=== PATIENT | female | born 2000 | race Caucasian/White ===

== ENCOUNTER 2024-12-22 11:17 | Emergency (ER) | payer BC, SELFPAY ==
--- NOTE | ~2024-12-22 | CT_ITS ---
EXAMINATION: CT HEAD WITHOUT CONTRAST CLINICAL INFORMATION: Headache, syncope COMPARISON: None available. TECHNIQUE: Contiguous axial imaging was performed from the skull base to vertex without intravenous administration of contrast. This CT examination was performed using dose optimization techniques as appropriate, variously including the following: *Automated exposure control *Adjustment of mA and/or kV according to patient size (this includes techniques or standardized protocols for targeted exams where dose is matched to indication/reason for exam; i.e. extremities or head) *Use of iterative reconstruction technique DLP: 584 mGY*cm FINDINGS: There is no acute ischemic change. There is no intracranial hemorrhage. There is no mass-effect or midline shift. Basal cisterns and ventricles are within normal limits for age/cerebral volume. Orbits are symmetrical and unremarkable. Paranasal sinuses and mastoid air cells are pneumatized. There are no bony abnormalities. CT/CT head/brain wo IV con IMPRESSION: No acute intracranial abnormality. Electronically signed by: Jonathan Kc MD 12/22/2024 01:51 PM EDT
[2024-12-22 12:02] VITALS: BP 133/74; PULSE 80; RESP 16; TEMP 36.4; O2SAT 100; BMI 19.5
--- NOTE | 2024-12-22 12:07 | ECG_ITS ---
Test Reason : SYNCOPE Blood Pressure : */* mmHG Vent. Rate : 76 BPM Atrial Rate : 76 BPM P-R Int : 112 ms QRS Dur : 76 ms QT Int : 348 ms P-R-T Axes : 66 44 51 degrees QTcB Int : 391 ms Normal sinus rhythm Normal ECG No previous ECGs available Referred By: Wale Rico Electronically Signed By: GULSHAN HORNER
--- NOTE | 2024-12-22 12:13 | ED_ITS ---
[facility] - General Adult General Chief complaint: Headache Stated complaint: 7 day migraine Time Seen by Provider: 12/22/24 13:34 Source: patient Mode of arrival: ambulatory Limitations: no limitations History of Present Illness ED Provider: [facility] narrative: 24-year-old woman with a history of POTS, vestibular migraine, has had migraine headache for the past 7 days with some features that are fairly typical for her such as right facial and right upper extremity numbness, she called her neurologist in [facility] from where she moved and now living here and was told to come to the ER. No fevers or chills slight nausea slight photophobia, she has been taking her breakthrough medication at home with some relief she is still about 7/10. She also states she had 3 syncope episodes, she usually passes out 2 to 3 times a month, has midodrine that she uses on as needed basis. No chest pain no atypical features with that. Related Data Allergies Allergy/AdvReac Type Severity Reaction Status Date / Time No Known Allergies Allergy Verified 12/22/24 12:06 Review of Systems 2 Constitutional: Constitutional: Reports as per [facility] Social History Social History Advance Directives: No Advance Directives Information Provided: Yes Physical Exam ED Vital Signs: Vital Signs - 24 hr 12/22/24 12:02 12/22/24 17:28 Temperature 97.5 F 98.0 F Pulse Rate 80 88 Respiratory Rate 16 16 Blood Pressure 133/74 91/57 L Pulse Oximetry 100 99 Oxygen Delivery Method Room Air Room Air BMI result Body Mass Index 19.5 Const Other: * Gen: ?Overall well-appearing patient * HEENT: PERRLA, EOMI, MMM, * Neck: Supple, no LAD * CV: RRR, no obvious murmurs appreciated * Resp: ?No wheezing rales rhonchi no stridor moving air well * Abd: ?Bowel sounds are present, no tenderness no rebound no rigidity * MSK: FROM, strength 5/5 all extremities * Skin: Warm, dry, intact, * Neuro: ?Alert and oriented x3, moving upper and lower extremities symmetrically, no obvious facial asymmetry noted, no dysmetria upper or lower extremities, no nystagmus Course Course Course Narrative: RME: 24-year-old female presents to ED for migraine for 1 week. Patient states last night headache was so bad she syncopized. Patient also has POTS syndrome. No relief with migraine meds. Imaging labs ordered Reevaluation(s) Reevaluation #1: I re-evaluated this patient at bedside, she states that after the 2nd dose she is feeling much improved. She has reached out to her neurologist and states that there were no additional recommendations. I did recommend that she could initiate glpe-odw-btvrver magnesium daily as an attempt in prevention of 400 mg. I also informed her that she can take Tylenol and ibuprofen together in addition to her prescribed medications. She otherwise appears well/nontoxic and is hemodynamically stable without focal neurologic deficits. Time: 17:06 Medications Administered Discontinued Medications Generic Name Dose Route Start Last Admin Trade Name Freq PRN Reason Stop Dose Admin Diazepam 2.5 mg 12/22/24 14:21 12/22/24 14:40 Diazepam 10 Mg/2 Ml Cartridge IVPUSH 12/22/24 14:22 2.5 mg STAT STA Administration Diazepam 4 mg 12/22/24 15:49 12/22/24 16:11 Diazepam 10 Mg/2 Ml Cartridge IVPUSH 12/22/24 15:50 4 mg STAT STA Administration Diphenhydramine HCl 12.5 mg 12/22/24 14:21 12/22/24 14:39 Diphenhydramine Hcl 50 Mg/Ml Vial IVPUSH 12/22/24 14:22 12.5 mg ONCE ONE Administration Sodium Chloride 1,000 mls @ 999 mls/hr 12/22/24 14:30 12/22/24 16:28 Ns IV 12/22/24 15:30 Infused .Q1H1M KAYLENE Infusion Acetaminophen 1,000 mg in 100 mls @ 400 mls/hr 12/22/24 15:49 12/22/24 17:20 Ofirmev IV 12/22/24 16:03 Infused ONCE ONE Infusion Ketorolac Tromethamine 15 mg 12/22/24 14:21 12/22/24 14:39 Ketorolac Tromethamine 15 Mg/Ml Vial IVPUSH 12/22/24 14:22 15 mg ONCE ONE Administration Methylprednisolone Sodium Succinate 125 mg 12/22/24 14:21 12/22/24 14:40 Methylprednisolone Sod Succ 125 Mg/2 Ml Vial IVPUSH 12/22/24 14:22 125 mg ONCE ONE Administration Ondansetron HCl 4 mg 12/22/24 14:21 12/22/24 14:38 Ondansetron Hcl 4 Mg/2 Ml Vial IVPUSH 12/22/24 14:22 4 mg ONCE ONE Administration Medical Decision Making Differential Diagnosis Differential Diagnoses: The differential diagnosis associated with the presentation includes (Migraine, cervicalgia, meningitis, encephalitis, brain mass, cavernous venous thrombosis, ACS, dysrhythmia, WPW) Admission/Observation Consideration of admission/observation: Escalation of care including admission/observation considered Lab Data MDM Lab Attestation statement: I reviewed the patient's lab results. 12/22/24 12:47 12/22/24 12:47 Labs: Lab Results 12/22/24 Range/Units 12:47 WBC 6.1 (4.8-10.8) X10*3/uL RBC 4.43 (4.20-5.50) X10*6/uL Hgb 13.2 (12.0-16.0) g/dl Hct 38.3 (37.0-47.0) % MCV 86.5 (80.0-98.0) fL MCH 29.8 (27.0-33.0) pg MCHC 34.5 (31.0-35.0) g/dl RDW 12.7 (11.0-16.0) % Plt Count 307 (160-400) X10*3/uL MPV 9.7 (9.4-12.3) fL Immature Gran % (Auto) 0.3 (0.0-0.4) % Neut % (Auto) 76.2 H (45-73) % Lymph % (Auto) 16.5 L (20-40) % [place] % (Auto) 5.8 (2-11) % Eos % (Auto) 0.7 (0-4) % Baso % (Auto) 0.5 (0-2) % Lymph # (Auto) 1.0 L (1.2-4.9) X10*3/uL [place] # (Auto) 0.4 (0.1-1.2) X10*3/uL Eos # (Auto) 0.0 (0.0-0.4) X10*3/uL Baso # (Auto) 0.0 (0.0-0.2) X10*3/uL Abs Immat Gran (auto) 0.02 (0.00-0.03) X10*3/uL Absolute Neuts (auto) 4.6 (2.0-8.3) x10*3/uL Absolute Nucleated RBC 0.000 (0.0-0.012) X10*3/uL Nucleated RBC % (auto) 0.0 (0.0-0.2) /100WBC PT 10.9 (10.9-12.4) SEC INR 1.0 (0.9-1.1) APTT 31.9 (26.7-34.1) SEC Sodium 143 (135-145) mmol/L Potassium 4.0 (3.3-5.1) mmol/L Chloride 108 (96-108) mmol/L Carbon Dioxide 27 (22-29) mmol/L Anion Gap 12 (12-20) BUN 18 H (9-16) mg/dL Creatinine 0.63 (0.5-1.4) mg/dL Estim Creat Clear Calc 106.5 Estimated GFR > 60 Random Glucose 72 (60-115) mg/dL Calcium 9.2 (8.4-10.2) mg/dL Total Bilirubin 0.8 (0.0-1.0) mg/dL AST 23 (5-31) U/L ALT 15 (0-31) U/L Alkaline Phosphatase 58 (39-117) U/L Troponin I High Sens < 2.7 (<3.5-17.0) ng/L Total Protein 7.2 (6.5-8.0) g/dL Albumin 4.8 (3.5-5.0) g/dL Beta HCG, Quant < 2 mIU/mL Independent Interpretation I performed an independent interpretation of an: EKG (76 beats per minute, otherwise normal ECG without dysrhythmia, AV jameson blocks or ST-T changes to suspect underlying ACS, my independent interpretation) Radiology Impression Discussion of test interpretation with radiology: I have reviewed the radiologist's reading. (Unremarkable ) Prescription Management I considered prescription management with: Pain Medication Critical Care Time Critical Care Time Critical Care Time: Yes Total Critical Care Time: 35 Attestation: Time is exclusive of separately billable procedures. Time includes: direct patient care, patient reassessment, coordination of patient care, interpretation of data (laboratory data, pulse oximetry, arterial blood gases and chest xrays), review of patient's medical records, medical consultation and documentation of patient care. Procedures excluded from critical care time: central intravenous line placement and electrocardiography. Discharge Plan Discharge Clinical Impression: Migraine, POTS (postural orthostatic tachycardia syndrome) Patient Disposition: Home, Self-Care Instructions: Migraine Headache (ED) Additional Instructions: Preventative medications and breakthrough medication should be discussed with a neurologist, your blood work, CT brain, EKG has been reassuring You received medications and IV fluids for migraines Overall I am reassured by your workup, your physical examination and your vital signs in the emergency department Any other issues or concerns come back to the ER May consider benm-znx-utoeswa magnesium 400 mg for prevention. Do not forget that you can take 1000 mg of Tylenol with 400 mg of ibuprofen together every 6 hours as needed. Stand Alone Forms: Work/School Release Interventions: ED Discharge Assessment Last Done: 12/22/24 17:28 Discharge Date/Time: 12/22/24 17:30 Print Language: Citizen Of [place]
[2024-12-22 12:50] LABS: MANUAL DIFF FLAG NO
[2024-12-22 12:51] LABS: Hematocrit 38.3 % (37.0-47.0); Hemoglobin 13.2 g/dl (12.0-16.0); Imm Gran Abs Auto 0.02 X10*3/uL (0.00-0.03); Imm Gran Pct Auto 0.3 % (0.0-0.4); Lymphocytes Absolute Auto 1.0 X10*3/uL (1.2-4.9); Mean Corpuscular HGB Conc 34.5 g/dl (31.0-35.0); Mean Corpuscular Hemoglobin 29.8 pg (27.0-33.0); Mean Corpuscular Volume 86.5 fL (80.0-98.0); NRBC Abs Auto 0.000 X10*3/uL (0.0-0.012); NRBC Pct Auto 0.0 /100WBC (0.0-0.2); Platelet Count 307 X10*3/uL (160-400); Red Blood Count 4.43 X10*6/uL (4.20-5.50); White Blood Count 6.1 X10*3/uL (4.8-10.8)
[2024-12-22 12:58] LABS: INTERNATIONAL NORM RATIO 1.0 (0.9-1.1); Prothrombin Time 10.9 SEC (10.9-12.4)
[2024-12-22 13:01] LABS: Partial Thromboplastin Time 31.9 SEC (26.7-34.1)
[2024-12-22 13:10] LABS: Alanine Aminotransferase 15 U/L (0-31); Albumin Level 4.8 g/dL (3.5-5.0); Alkaline Phosphatase 58 U/L (39-117); Anion Gap 12 (12-20); Aspartate Amino Transferase 23 U/L (5-31); Blood Urea Nitrogen 18 mg/dL (9-16); Calcium 9.2 mg/dL (8.4-10.2); Carbon Dioxide 27 mmol/L (22-29); Chloride 108 mmol/L (96-108); Creatinine Clr Calc Pharmacy 106.5; Estimated Glomerular Filt Rate > 60; Potassium 4.0 mmol/L (3.3-5.1); Sodium 143 mmol/L (135-145); Total Protein 7.2 g/dL (6.5-8.0)
[2024-12-22 13:23] LABS: Troponin-I High Sensitivity < 2.7 ng/L (<3.5-17.0)
[2024-12-22] MEDS: diazePAM 10 MG/2 ML CARTRIDGE 2.5 MG IVPUSH (14:40)
[2024-12-22] MEDS: diazePAM 10 MG/2 ML CARTRIDGE 4 MG IVPUSH (16:11)
[2024-12-22 17:28] VITALS: BP 91/57; PULSE 88; RESP 16; TEMP 36.7; O2SAT 99
--- OUTSIDE RECORDS SUMMARY | 2024-12-22 17:44 | XMS_ITS | Encounter Summary ---
Author Organization [facility] Address [address] [place] [address] [address] [place] [address] Phone Care Team Providers Care Patient Insurance Clerk Name Role Phone Kamini Rodriguez RN Primary Care Provider [phone] Encounter Details Date Type Department Care Team (Late st Contact Info) Description 06/24/2023 Procedure Pass [facility] [address] [place] [address] Social History Tobacco Use Types Packs/Day Years Used Date Smoking Tobacco: Never Assessed Education Answer Date Recorded Are you interested in more education? Not on aly e 08/02/2022 Are you concerned about learning? Not on file 08/02/2022 No 08/02/2022 No 08/02/2022 Digital Access Answer Date Recorded No 09/02/2022 No 09/02/2022 Reliable internet access at home? Not on file 09/02/2022 Device with a working camera? Not on file Comments Unknown Sex and Gender Information Value Date Recorded Sex Assigned at Female 09/25/2023 1:10 PM EDT Legal Sex Female 2:55 PM EST Gender Identity Female 09/25/2023 1:10 PM EDT Sexual Orientation Straight 09/25/2023 1: 10 PM EDT documented as of this encounter Plan of Treatment Upcoming Encounters Date Type Department Care Team (Late st Contact Info) Description 01/21/2025 1:30 PM EDT Office Visit [facility] Cardiology [address], [address] [place] [address] Kamilla Mancia MD [address] [place] [phone] [email or web address] 06/13/2025 8:00 AM EDT Telemedicine [facility] [address] [place] [address] [address] [place] [address] Gonzalo Bedolla MD [address] [place] [address] [address] [place] [address] [email or web address] documented as of this encounter Visit Diagnoses Not on filedocumented in this encounter Care Teams Patient Insurance Clerk Relationship Specialty Start Date End Date Kamini Rodriguez RN [email or web address] PCP - General 01/22/22 Kamini Rodriguez NP [address] [place] [address] Primary Care Physician 02/05/21 documented as of this encounter Additional Source Comments The information contained in this document represents components of the legal health record. It is not the complete legal health record.[facility]
--- OUTSIDE RECORDS SUMMARY | 2024-12-22 17:44 | XMS_ITS | Clinical Summary ---
Author Organization [facility] Address [address] [place] [id number] Phone Care Team Providers Care Fuel Tank Sealer And Tester Name Role Phone Kamini Rodriguez RN Primary Care Provider [phone] Allergies No known active allergies Medications norethindrone-ethi nyl estradiol-iron (ESTROSTEP FE) 1-20(5)/1-30(7) /1mg-35mcg (9) Tab Take 1 tablet by mouth daily. Active bacillus coagulans-inulin 1 billion-250 cell-mg Cap Take 250 mg by mouth daily. Active calcium carbonate 1,250 mg (500 mg elemental) capsule Take 1,250 mg by mouth daily. Active ondansetron (ZOFRAN) 4 MG tablet Take 4 mg by mouth every 8 (eight) hours as needed for nausea. Uses infrequently Active cholecalciferol (VITAMIN D3) 400 unit tablet Take 400 Units by mouth daily. Active pyRIDostigmine (MESTINON) 60 mg tablet Take 1 tablet (60 mg total) by mouth 2 (two) times a day. 60 tablet 11 01/08/20 24 Active sodium chloride 1,000 mg tablet Take 1 tablet (1,000 mg total) by mouth 3 (three) times a day. 270 tablet 3 01/08/20 24 Active midodrine (PROAMATINE) 10 MG tablet Take 1 tablet (10 mg total) by mouth every morning. As needed 30 tablet 11 01/08/20 24 Active multivitamin stress B with zinc (SURBEX 750 WITH ZINC TABLET) Tab Take 1 tablet by mouth daily. Active etonogestreL (NEXPLANON) 68 mg Impl Inject 68 mg into the skin Once every 3 years. Active rizatriptan (MAXALT-SMOKE JUMPER SUPERVISOR) 10 MG disintegrating tablet Take 1 tablet (10 mg total) by mouth as needed for migraine. May repeat in 2 hours if needed 9 tablet 5 06/12/19 25 Active amitriptyline (ELAVIL) 25 MG tablet Take 1 tablet (25 mg total) by mouth nightly at bedtime. TAKE ONE TABLET BY MOUTH AT BEDTIME 90 tablet 3 06/12/19 25 Active Active Problems Problem Noted Date Diagnosed Date BPPV (benign paroxysmal posi tional vertigo), unspecified laterality 01/24/2020 POTS (postural orthostatic tachycardia syndrome) Assessment & Plan (01/17/2024 4:13 PM EDT): Mestinon - Mestinon (Pyridostigmine) is a cholinesterase inhibiter that decreases the degradation of acetylcholine which is the scott neurotransmitter in both fight or flight (sympathetic) and rest and digest (parasympathetic) autonomic systems. The Baroreflex that regulates blood pressure and heart rate on standing is part of the sympathetic nervous system. Mestinon is best for patients with mild to moderate orthostatic hypotension. It will also run heart rate lower and increase bowel motility. Side effect - rare face twitch minor queasy that goes away. Slow load Week 1 Mestinon 60 mg 1/2 AM Week 2 Mestinon 1/2 tablet AM and 5 PM Week 3 Mestinon whole tablet AM then 1/2 tablet at 5 PM Week 4 and beyond whole tablet AM and 5 PM Will take effect in 1 month full effect in 3 months You can increase steps per day at the one month yin! Use a Negoramabit or Apple watch to count steps Message me via [place] with progress at the 4 month yin. Assessment & Plan (11/27/2022 12:33 PM EDT): Had to call in salt tablet 1 g tid Refilled midodrine 5 mg am as needed Assessment & Plan (12/08/2021 1:32 PM EDT): Moving Florinef 0.1 mg to 0.2 mg Labs after 1 -2 weeks Assessment & Plan (08/03/2021 10:41 PM EDT): May do well with florinef in addition to midodrine. 2-3 liters Fluid - Chug 1st glass of the day Salt Compression Socks Lower extremity exercise - recumbant bike Book: Together we Stand: Riding the Waves of Dysautonomia. By Magali Cochran Echo in [place] AFT tilt table in [place] Assessment & Plan (05/24/2021 1:40 PM EST): At a prior visit, felt she met diagnostic criteria for POTS based on HR rise by more than 30 bpm, and over 120 within 10 minutes of standing. She does not appear to have any associated disorders such as Ehler Danlos. Overall she was doing much better, able to work, though recently some worsening post URTI. Her HR and BP with supine/standing were not impressive today but she is still symptomatic and affecting QOL. Will increase midodrine to 10 mg BID, she will message me in a few days, with eventual plan to taper back to prior dose of 5 mg BID. She will continue to hydrate well, increase salt. Her leg pain could be from tight leg sleeves, she will stop using and see if this improves. Assessment & Plan (02/09/2021 1:10 PM EDT): At prior visit, felt she met diagnostic criteria for POTS based on HR rise by more than 30 bpm, and over 120 within 10 minutes of standing. She does not appear to have any associated disorders such as Ehler Danlos. Overall she is doing much better, enjoying her new job and looking forward to a trip to [facility] over the holidays. To adjust meds to perhaps offer even better control - will change midodrine to 5 mg BID, continue salt, compression stockings and hydration. Will plan in person visit when next seen. Assessment & Plan (10/23/2020 9:58 AM EDT): At prior visit, felt she met diagnostic criteria for POTS based on HR rise by more than 30 bpm, and over 120 within 10 minutes of standing. She does not appear to have any associated disorders such as Ehler Danlos. Sheila is doing better after physiotherapy, salt tablets, consistent use of compression stockings and now midodrine. She is looking forward to starting her new job next week and feels ready to do so. She starts feeling better, 30 minutes after midodrine for at least 4 hours after. Can take another midodrine 2.5 mg in the afternoon as needed for symptoms. BMP and LFT's today. She will continue other measures including salt tablets, compression stockings and exercise therapy. Assessment & Plan (10/11/2020 11:34 AM EDT): Sheila is doing better after physiotherapy, salt tablets, consistent use of compression stockings. However not back to baseline and still affecting QOL. At prior visit, felt she met diagnostic criteria for POTS based on HR rise by more than 30 bpm, and over 120 within 10 minutes of standing. She does not appear to have any associated disorders such as Ehler Danlos. She is hoping to start employment in early November - thus goal is to ensure she feels well enough to do so. Today will start midodrine 2.5 mg daily - with goal to increase to BID/TID as able. She will message me in a week with how she is feeling and otherwise followup in 2 weeks. She will continue other measures including salt tablets, compression stockings and exercise therapy. Assessment & Plan (07/07/2020 11:21 AM EDT): Sheila is doing better after physiotherapy, salt tablets, consistent use of compression stockings. At last visit, felt she met diagnostic criteria for POTS based on HR rise by more than 30 bpm, and over 120 within 10 minutes of standing. She does not appear to have any associated disorders such as Ehler Danlos. We had planned a short term followup to ensure improvement and if not consider Florinef - which I do not feel we need to start at this time. Will continue hydration, salt tablets and can increase to 3 mg daily over summer if more symptomatic. Asker her to check BP once/twice/month. g BID. Her syncope appears to have a vagal component and we will be treated similarly as above, with no recurrences. Assessment & Plan (05/17/2020 9:38 PM EST): Sheila appears meet diagnostic criteria for POTS based on HR rise by more than 30 bpm, and over 120 within 10 minutes of standing. She does not appear to have any associated disorders such as Ehler Danlos. We reviewed the overall good prognosis and this will likely improve over time. She is really benefiting from physiotherapy. Will continue to wear compression stockings and also encouraged high salt foods - soups, pretzels etc. We also started salt tablets for a dose of 1 g BID. We will connect soon and if still affecting QOL plan to start florinef. Her syncope appears to have a vagal component and we will be treated similarly as above. Abnormal electrocardiogram Assessment & Plan (05/24/2021 1:36 PM EST): Short IA which could set her up for SVT, no delta wave, primary arhythmia does not appear consistent with her history, no SVT on monitoring in the past Assessment & Plan (02/09/2021 1:08 PM EDT): Short IA which could set her up for SVT, no delta wave, primary arhythmia does not appear consistent with her history, no SVT on monitoring in the past Assessment & Plan (10/23/2020 9:16 AM EDT): Short IA which could set her up for SVT, no delta wave, primary arhythmia does not appear consistent with her history ,no SVT on monitoring in the past Assessment & Plan (10/11/2020 11:05 AM EDT): Short IA which could set her up for SVT, no delta wave, primary arhythmia does not appear consistent with her history ,no SVT on monitoring in the past Assessment & Plan (07/07/2020 11:01 AM EDT): Short IA which could set her up for SVT, no delta wave, primary arhythmia does not appear consistent with her history ,no SVT on monitoring in the past Assessment & Plan (05/16/2020 11:18 PM EST): Short IA which could set her up for SVT, no delta wave, primary arhythmia does not appear consistent with her history ,no SVT on monitoring in the past Social History Tobacco Use Types Packs/Day Years Used Date Smoking Tobacco: Never Assessed Tobacco Cessation:Counseling Given: Not Answered Education Answer Date Recorded Are you interested [...] Orientation Straight 09/25/2023 1: 10 PM EDT Last Filed Vital Signs Vital Sign Reading Time Taken Comments Blood Pressure 121/76 06/11/2024 8:47 AM EST Pulse 82 06/11/2024 8:47 AM EST Temperature 36.5 C (97.7 F) 01/28/2023 2:04 PM EDT Respiratory Rate - - Oxygen Saturation 98% 01/28/2023 2:04 PM EDT Inhaled Oxygen Concentration - - Weight 43.5 kg (96 lb) 06/11/2024 8:47 AM EST Height 152.4 cm (5') 06/11/2024 8:47 AM EST Body Mass Index 18.75 06/11/2024 8:47 AM EST Plan of Treatment Upcoming Encounters Date Type Department Care Team (Late st Contact Info) Description 01/21/2025 1:30 PM EDT Office Visit [facility] Cardiology [facility] [address] [facility], [address] [place] [address] Kamilla Mancia MD [address] [place] [phone] [email or web address] 06/13/2025 8:00 AM EDT Telemedicine [facility] [address] [address] Gonzalo Bedolla MD [address] [phone] [email or web address] Health Maintenance Due Date Last Done Comments DEPRESSION SCREENING 2010 SMOKING Hx and SMOKELESS TOBACCO SCREENING 2011 HPV VACCINES (1 - 3-dose series) 2013 HIV ONE-TIME SCREENING (18-65 YEARS) 02/11/2016 PAP SMEAR 2019 INFLUENZA VACCINE (#1) 2024 , 03/02/2022, 12/27/2020, Additional history exists COVID-19 VACCINE ( season) 2024 02/01/2023, 02/02/2022, 02/02/2021, Additional history exists Adult Td,Tdap Booster 01/04/2032 01/03/2022, 011 MENINGOCOCCAL VACCINES (ACWY) Completed 01/04/2016, 11/22/2010 HEPATITIS A VACCINES Aged Out 04/12/2019, 05/22/19 19 No longer eligible based on patient's age to complete this topic HEPATITIS C SCREENING Completed 01/03/2022 HIB VACCINES Aged Out No longer eligi ble based on patient's age to complete this topic MENINGOCOCCAL VACCINES (B) Aged Out N o longer eligible based on patient's age to complete this topic PNEUMOCOCCAL VACCINES (0-49 years) Aged Out No longer eligible based on patient's age to complete this topic Medical Devices Not on file Insurance OUT OF STATE PPO BLUE CROSS OUT OF STATE PPO BLUE CROSS OUT OF [facility] PPO BLUE CROSS OUT OF STATE PPO OUT OF STATE PPO OUT OF CRITICAL [facility]ESS [facility]OSPITAL PPO SELECTIVE Care Teams Fuel Tank Sealer And Tester Relationship Specialty Start Date End Date Kamini Rodriguez RN [email or web address] PCP - General 01/22/22 Kamini Rodriguez NP [address] [place] [id number] Primary Care Physician 02/05/21 Additional Source Comments The information contained in this document represents components of the legal health record. It is not the complete legal health record.[facility]
--- OUTSIDE RECORDS SUMMARY | 2024-12-22 17:44 | XMS_ITS | Clinical Summary ---
Author Organization [facility] Address [address] [place] [address] Phone Care Team Providers Care Cane Splicer Name Role Phone Gia Ansari MD Primary Care Provider [phone] Gia Ansari MD Unavailable [phone] Gia Ansari MD Unavailable [phone] Leander Penn MD Unavailable Medications ondansetron ODT (Zofran-ODT) 4 mg disintegrating tablet Dose: 4 mg, Dose Amount: 1 tab, PO, daily, PRN Nausea/Vomit ing, Dispense Quantity: 8 tab, Refills: 3, Entered: 03/27/20 12:11:00 EST, BIG Y 101 0 Active Social History Tobacco Use Types Packs/Day Years Used Date Smoking Tobacco: Never Assessed Comments Unknown Sex and Gender Information Value Date Recorded Sex Assigned at Not on file Legal Sex Female 10:15 PM EDT Gender Identity Not on file Sexual Orientation Not on file Last Filed Vital Signs Vital Sign Reading Time Taken Comments Blood Pressure 108/64 04/26/2020 8:23 AM EST Pulse 71 04/26/2020 8:23 AM EST Temperature 37.3 C (99.1 F) 05/29/2020 8:02 AM EST Respiratory Rate - - Oxygen Saturation 98% 04/12/2020 2:46 PM EST Inhaled Oxygen Concentration - - Weight 41.3 kg (91 lb 0.8 oz) 05/29/2020 8:02 AM EST Height 153.4 cm (5' 0.39 ) 05/29/2020 8:02 AM ES T Body Mass Index 17.55 05/29/2020 8:02 AM EST Plan of Treatment Not on file Care Teams Cane Splicer Relationship Specialty Start Date End Date Gia Ansari MD PCP - General 12/28/12 Gia Ansari MD PCP - Clinical PCP 12/28/12 Gia Ansari MD PCP - Insurance PCP 12/28/12 Leander Penn MD [address] [place] [address] Mattress Filler 09/06/23
--- OUTSIDE RECORDS SUMMARY | 2024-12-22 17:44 | XMS_ITS | Encounter Summary ---
Author Organization [facility] Address [address] [place] [address] [address] [place] [address] Phone Care Team Providers Care Retail Salesperson Name Role Phone Unknown, Unknown Primary Care Provider Kamini Jones RN Primary Care Provider [phone] Encounter Details Date Type Department Care Team (Late Contact Info) Description 07/19/2021 Procedure Pass [facility] Cardiology [address] [place] [address], [address] [place] [phone] Social History Tobacco Use Types Packs/Day Years [...] Encounters Date Type Department Care Team (Late Contact Info) Description 01/21/2025 1:30 PM EDT Office Visit [facility] Cardiology [facility] [address] [facility], [address] [phone] Kamilla Mancia MD [address] [place] [address] [email or web address] 06/13/2025 8:00 AM EDT Telemedicine [facility] [address] [facility] [address] [place] [address] Gonzalo Bedolla MD [address] [facility] [address] [place] [address] [email or web address] documented as of this encounter Visit Diagnoses Not on filedocumented in this encounter Care Teams Retail Salesperson Relationship Specialty Start Date End Date Unknown, Unknown, MD PCP - General 02/20/21 01/21/22 Kamini Rodriguez RN [email or web address] PCP - General 01/22/22 Kamini Rodriguez NP [address] [place] [phone] Primary Care Physician 02/05/21 documented as of this encounter Additional Source Comments The information contained in this document represents components of the legal health record. It is not the complete legal health record.[facility]
--- OUTSIDE RECORDS SUMMARY | 2024-12-22 17:44 | XMS_ITS | Encounter Summary ---
Author Organization [facility] Address [address] [place] [address] [address] [place] [address] Phone Care Team Providers Care Petrology Teacher Name Role Phone Kamini Rodriguez RN Primary Care Provider [phone] Encounter Details Date Type Department Care Team (Late st Contact Info) Description 06/24/2023 Procedure Pass [facility] [address] [place] [address] Social History Tobacco Use Types Packs/Day Years [...] Description 01/21/2025 1:30 PM EDT Office Visit [facility] Cardiology [address], [address] [place] [address] Kamilla Mancia MD [address] [place] [address] [email or web address] 06/13/2025 8:00 AM EDT Telemedicine [facility] [address] [place] [address] [address] [place] [address] Gonzalo Bedolla MD [address] [place] [address] [address] [place] [address] [email or web address] documented as of this encounter Visit Diagnoses Not on filedocumented in this encounter Care Teams Petrology Teacher Relationship Specialty Start Date End Date Kamini Rodriguez RN [email or web address] PCP - General 01/22/22 Kamini Rodriguez NP [address] [place] [address] Primary Care Physician 02/05/21 documented as of this encounter Additional Source Comments The information contained in this document represents components of the legal health record. It is not the complete legal health record.[facility]
--- OUTSIDE RECORDS SUMMARY | 2024-12-22 17:44 | XMS_ITS ---
[facility] Name [facility] Organization Unknown Care Team Organization Name Specialty Phone Email Start Date End [facility] 06/14/2024
== END 2024-12-22 17:30 | disposition home or self-care (01) ==
PROVIDERS: Physician Assistant; Emergency Provider Emergency Medicine
DX: G43.909 Migraine, unspecified, not intractable, without status migrainosus (principal); G90.A Postural orthostatic tachycardia syndrome [POTS]; R55 Syncope and collapse; R10.11 Right upper quadrant pain; R11.2 Nausea with vomiting, unspecified; R10.2 Pelvic and perineal pain; Z79.899 Other long term (current) drug therapy
CPT/HCPCS: 36415; 70450; 80053; 84484; 84702; 85025; 85610; 85730; 93005; 96361; 96365; 96375; 96376; 99284; J0131; J1200; J1885; J2405; J2919; J3360

== ENCOUNTER → 2024-12-22 12:07 | Outpatient (BNV) | payer BC, SELFPAY | PROVIDERS: Emergency Provider Emergency Medicine; Visit Provider Internal Medicine | DX: R55 Syncope and collapse (principal) | CPT/HCPCS: 93010 ==

== ENCOUNTER → 2024-12-22 12:07 | Outpatient (BNV) | payer BC, SELFPAY | PROVIDERS: Emergency Provider Emergency Medicine; Visit Provider Radiology Diagnostic Radiology | DX: R51.9 Headache, unspecified (principal); R55 Syncope and collapse | CPT/HCPCS: 70450 ==

== ENCOUNTER 2025-01-03 18:51 | Emergency (ER) | payer BC, SELFPAY ==
[2025-01-03 19:19] VITALS: BP 110/75; PULSE 87; RESP 16; TEMP 36.5; O2SAT 97; BMI 18.9
--- NOTE | 2025-01-03 19:20 | ED.GENADULT ---
HPI - General Adult General Chief complaint: Headache Stated complaint: Migraine Time Seen by Provider: 01/03/25 23:42 Source: patient Limitations: no limitations History of Present Illness ED Provider: Renetta Bueno PA-C HPI narrative: 24F with a past medical history of vestibular migraines, POTS, with a near syncopal symptoms secondary to her migraine pain, presents with a refractory migraine x3 days. Patient states she takes a preventative medication and an acute medication for her migraines. She is followed by Neurology. Her current medications have not offer relief from her symptoms. Associated right-sided headache that has retro-orbital. Associated nausea, vomiting, dizziness and photophobia. Patient states she has preceding aura. Patient has pending neurology consult, there was going to be discussion about modifying her current migraine regimen. Patient denies recent illness, cough or cold symptoms fever, new psychosocial stressors, new contraception or dietary changes. No neck pain. Related Data Previous Rx's ?Medication ?Instructions ?Recorded ketorolac 10 mg tablet 10 mg PO Q6H PRN pain #20 tabs 01/04/25 prochlorperazine maleate 10 mg 10 mg PO Q8H PRN nausea and 01/04/25 tablet (Compazine) vomiting #10 tabs Allergies Allergy/AdvReac Type Severity Reaction Status Date / Time No Known Allergies Allergy Verified 01/03/25 19:22 Review of Systems Review of Systems: Yes all other systems are reviewed and are negative Constitutional: Constitutional: Denies fatigue, Denies fever(s) and Reports headache(s) Eyes: Eyes: Denies change in vision and Reports photophobia ENT: Reports dizziness, Reports headache(s) and Denies neck pain Cardiovascular: Cardiovascular: Denies chest pain and Denies dyspnea Respiratory: Respiratory: Denies dyspnea Gastrointestinal: Gastrointestinal: Denies abdominal pain, Reports nausea and Reports vomiting Musculoskeletal: Musculoskeletal: Denies back pain and Denies neck pain Neurologic: Reports dizziness and Reports headache(s) Endocrine: Endocrine: Denies fatigue PMF Past Medical History Attestation statement: The following information was validated with the patient. Social History Social History Alcohol intake: current Smoked in Last 30 Days: No Use of substances other than those prescribed or required for medical reasons: No Advance Directives: No Advance Directives Information Provided: Yes Do you have a plan to hurt others: No Plan Physical Exam ED Vital Signs: Vital Signs - 24 hr 01/03/25 19:19 01/04/25 01:38 01/04/25 01:42 Temperature 97.7 F 97.7 F 97.7 F Pulse Rate 87 79 79 Respiratory Rate 16 16 16 Blood Pressure 110/75 104/72 104/72 Pulse Oximetry 97 98 98 Oxygen Delivery Method Room Air Room Air Room Air BMI result Body Mass Index 18.9 Const Other: Alert, Orientation/consciousness: patient oriented x3 Eyes Direct Ophthalmoscopy: photophobia Neck Neck: Yes full ROM and Yes no meningeal signs Resp Effort & Inspection: normal respiratory effort Cardio Other: Normal peripheral perfusion Skin Other: Warm dry no rash Neuro General: patient oriented x3, gait normal, no meningeal signs, no focal motor deficits and CN's II-XI intact bilaterally Psych Other: Cooperative Course Course Course Narrative: Rapid medical examination performed in triage by Camille Looney PA-C. Patient is a 24 year old assigned female at presenting to the emergency department with a migraine. Patient states that she took her preventative and her abortive and continues to have a migraine. Detailed physical exam and review of systems are deferred to the primary class teacher. Labs ordered. Patient placed back in the waiting room pending room availability and results. Reevaluation(s) Reevaluation #1: Headache resolved after migraine cocktail Medications Administered Discontinued Medications Generic Name Dose Route Start Last Admin Trade Name Rakesh PRN Reason Stop Dose Admin Dexamethasone Sodium Phosphate 10 mg 01/03/25 23:51 01/04/25 00:07 Dexamethasone Sod Phosphate 10 Mg/Ml Vial IVPUSH 01/03/25 23:52 10 mg ONCE ONE Administration Diphenhydramine HCl 25 mg 01/03/25 23:51 01/04/25 00:07 Diphenhydramine Hcl 50 Mg/Ml Vial IVPUSH 01/03/25 23:52 25 mg ONCE ONE Administration Sodium Chloride 500 mls @ 500 mls/hr 01/03/25 23:51 01/04/25 01:07 Ns IV 01/04/25 00:50 Infused .Q1H ONE Infusion Ketorolac Tromethamine 15 mg 01/03/25 23:51 01/04/25 00:08 Ketorolac Tromethamine 15 Mg/Ml Vial IVPUSH 01/03/25 23:52 15 mg ONCE ONE Administration Prochlorperazine Edisylate 10 mg 01/03/25 23:51 01/04/25 00:08 Prochlorperazine Edisylate 10 Mg/2 Ml Vial IVPUSH 01/03/25 23:52 10 mg ONCE ONE Administration Medical Decision Making Medical Decision Making [facility] Narrative: 24F with a past medical history of vestibular migraines, POTS, with a near syncopal symptoms secondary to her migraine pain, presents with a refractory migraine x3 days. Patient states she takes a preventative medication and an acute medication for her migraines. She is followed by Neurology. Her current medications have not offer relief from her symptoms. Associated right-sided headache that has retro-orbital. Associated nausea, vomiting, dizziness and photophobia. Patient states she has preceding aura. Patient has pending neurology consult, there was going to be discussion about modifying her current migraine regimen. Patient denies recent illness, cough or cold symptoms fever, new psychosocial stressors, new contraception or dietary changes. Problem: Known migraine History: Per patient I have considered the following differential diagnoses: Migraine, VAD, intracranial hemorrhage, meningitis Plan: The patient is here with a migraine that is consistent with her typical migraine symptoms, we will give migraine cocktail. Thought about meningitis, however she has not been sick she is afebrile without meningeal signs on exam. Thought about VAD, however there was not an actual heavy lifting mechanism of injury prior to the onset of her migraines, and she is neurologically intact without focal deficits. Likewise, thought about intracranial hemorrhage, however there was no trauma, she is not on a blood thinner, she has no risk factors for vascular disease, she has of young age, and again she is neurologically intact. She does not require advanced imaging. Screening labs were ordered from triage. She had a recent head CT on December 22 that was normal I have independently reviewed the following tests: Labs: No leukocytosis, not anemic, no electrolyte abnormality, not , viral panel Differential Diagnosis Differential Diagnoses: The differential diagnosis associated with the presentation includes See medical decision-making Admission/Observation Consideration of admission/observation: Escalation of care including admission/observation considered Not applicable Lab Data [facility] Lab Attestation statement: I reviewed the patient's lab results. 01/03/25 19:34 01/03/25 19:34 Labs: Lab Results 01/03/25 Range/Units 19:34 WBC 7.2 (4.8-10.8) X10*3/uL RBC 4.26 (4.20-5.50) X10*6/uL Hgb 12.5 (12.0-16.0) g/dl Hct 36.5 L (37.0-47.0) % MCV 85.7 (80.0-98.0) fL MCH 29.3 (27.0-33.0) pg MCHC 34.2 (31.0-35.0) g/dl RDW 12.6 (11.0-16.0) % Plt Count 280 (160-400) X10*3/uL MPV 9.8 (9.4-12.3) fL Immature Gran % (Auto) 0.1 (0.0-0.4) % Neut % (Auto) 64.6 (45-73) % Lymph % (Auto) 27.3 (20-40) % [place] % (Auto) 6.1 (2-11) % Eos % (Auto) 1.2 (0-4) % Baso % (Auto) 0.7 (0-2) % Lymph # (Auto) 2.0 (1.2-4.9) X10*3/uL [place] # (Auto) 0.4 (0.1-1.2) X10*3/uL Eos # (Auto) 0.1 (0.0-0.4) X10*3/uL Baso # (Auto) 0.1 (0.0-0.2) X10*3/uL Abs Immat Gran (auto) 0.01 (0.00-0.03) X10*3/uL Absolute Neuts (auto) 4.7 (2.0-8.3) x10*3/uL Absolute Nucleated RBC 0.000 (0.0-0.012) X10*3/uL Nucleated RBC % (auto) 0.0 (0.0-0.2) /100WBC Sodium 143 (135-145) mmol/L Potassium 3.6 (3.3-5.1) mmol/L Chloride 109 H (96-108) mmol/L Carbon Dioxide 27 (22-29) mmol/L Anion Gap 11 L (12-20) BUN 18 H (9-16) mg/dL Creatinine 0.65 (0.5-1.4) mg/dL Estim Creat Clear Calc 90.9 Estimated GFR > 60 Random Glucose 101 (60-115) mg/dL Calcium 9.2 (8.4-10.2) mg/dL Magnesium 2.4 (1.6-2.6) mg/dL Total Bilirubin 0.5 (0.0-1.0) mg/dL AST 21 (5-31) U/L ALT 13 (0-31) U/L Alkaline Phosphatase 52 (39-117) U/L Total Protein 7.3 (6.5-8.0) g/dL Albumin 4.8 (3.5-5.0) g/dL Beta HCG, Quant < 2 mIU/mL COVID-19 (SHANNAN) Negative (Negative) COVID-19 Clin Com See Note Influenza Type A (FLORENTINO) Negative (Negative) Influenza Type B (FLORENTINO) Negative (Negative) Influenza A & B Note See Note Discharge Plan Discharge Clinical Impression: Migraine Patient Disposition: Home, Self-Care Instructions: Migraine Headache (ED) Additional Instructions: You were treated for a migraine type headache. See home care instructions. I am sending you with a medication that you received today as part of our migraine cocktail. If you develop another headache, take all the medications at once. It is their center to sick affect that helps to break the migraine cycle. Keep your pending neurology appointment. Ketorolac 10 mg Compazine 10 mg OTC Benadryl 25 mg Prescriptions: New ketorolac 10 mg tablet 10 mg PO Q6H PRN (Reason: pain) Qty: 20 0RF Rx Instructions: maximum total duration of 5 days from all oral, intranasal, or parenteral formulations. Patient received an IV dose of Toradol here in the emergency room. prochlorperazine maleate [Compazine] 10 mg tablet 10 mg PO Q8H PRN (Reason: nausea and vomiting) Qty: 10 0RF Stand Alone Forms: Work/School Release Interventions: ED Discharge Assessment Last Done: 01/04/25 01:42 Discharge Date/Time: 01/04/25 01:42 Print Language: Moldovan
[2025-01-03 19:44] LABS: MANUAL DIFF FLAG NO
[2025-01-03 19:47] LABS: Hematocrit 36.5 % (37.0-47.0); Hemoglobin 12.5 g/dl (12.0-16.0); Imm Gran Abs Auto 0.01 X10*3/uL (0.00-0.03); Imm Gran Pct Auto 0.1 % (0.0-0.4); Lymphocytes Absolute Auto 2.0 X10*3/uL (1.2-4.9); Mean Corpuscular HGB Conc 34.2 g/dl (31.0-35.0); Mean Corpuscular Hemoglobin 29.3 pg (27.0-33.0); Mean Corpuscular Volume 85.7 fL (80.0-98.0); NRBC Abs Auto 0.000 X10*3/uL (0.0-0.012); NRBC Pct Auto 0.0 /100WBC (0.0-0.2); Platelet Count 280 X10*3/uL (160-400); Red Blood Count 4.26 X10*6/uL (4.20-5.50); White Blood Count 7.2 X10*3/uL (4.8-10.8)
[2025-01-03 20:00] LABS: COVID-19 Test Negative (Negative); IDNOW Serial# 55D5AD1C; IDNOW Serial# 58CA691E
[2025-01-03 20:01] LABS: Influenza B2 Negative (Negative)
[2025-01-03 20:03] LABS: Alanine Aminotransferase 13 U/L (0-31); Albumin Level 4.8 g/dL (3.5-5.0); Alkaline Phosphatase 52 U/L (39-117); Anion Gap 11 (12-20); Aspartate Amino Transferase 21 U/L (5-31); Blood Urea Nitrogen 18 mg/dL (9-16); Calcium 9.2 mg/dL (8.4-10.2); Carbon Dioxide 27 mmol/L (22-29); Chloride 109 mmol/L (96-108); Creatinine Clr Calc Pharmacy 90.9; Estimated Glomerular Filt Rate > 60; Magnesium 2.4 mg/dL (1.6-2.6); Potassium 3.6 mmol/L (3.3-5.1); Sodium 143 mmol/L (135-145); Total Protein 7.3 g/dL (6.5-8.0)
--- OUTSIDE RECORDS SUMMARY | 2025-01-03 23:46 | XMS_ITS | Clinical Summary ---
Author Organization [facility] Address [address] [place] [address] Phone Care Team Providers Care Grove Superintendent Name Role Phone Kamini Rodriguez RN Primary Care Provider [phone] Allergies No known active allergies Medications norethindrone-ethi [...] Take 400 Units by mouth daily. Active sodium chloride 1,000 mg tablet Take [...] skin Once every 3 years. Active rizatriptan (MAXALT-TOE STAPLER) 10 MG disintegrating tablet Take 1 tablet (10 mg total) by mouth as needed for migraine. May repeat in 2 hours if needed 9 tablet 5 06/12/19 25 Active amitriptyline (ELAVIL) 25 MG tablet Take 1 tablet (25 mg total) by mouth nightly at bedtime. TAKE ONE TABLET BY MOUTH AT BEDTIME 90 tablet 3 06/12/19 25 Active pyRIDostigmine (MESTINON) 60 mg tablet Take 1 tablet (60 mg total) by mouth 2 (two) times a day. 60 tablet 11 01/04/20 25 Active pyRIDostigmine (MESTINON) 60 mg tablet Take 1 tablet (60 mg total) by mouth 2 (two) times a day. 60 tablet 11 01/08/20 24 025 Discontin ued(Reord er) Active Problems Problem Noted Date Diagnosed Date [...] at the one month yin! Use a OneTwoTripbit or Apple watch to count steps Message me via [place] with progress at the 4 month yin. [...] of Dysautonomia. By Magali Cochran Echo in [employer] AFT tilt table in [place] Assessment & Plan (05/24/2021 1:40 PM EST): [...] and looking forward to a trip to [facility] over the holidays. To adjust meds to [...] Assessment & Plan (10/11/2020 11:34 AM EDT): hSeila is doing better after physiotherapy, salt tablets, [...] & Plan (05/24/2021 1:36 PM EST): Short [place] which could set her up for SVT, no delta wave, primary arhythmia does not appear consistent with her history, no SVT on monitoring in the past Assessment & Plan (02/09/2021 1:08 PM EDT): Short [place] which could set her up for SVT, no delta wave, primary arhythmia does not appear consistent with her history, no SVT on monitoring in the past Assessment & Plan (10/23/2020 9:16 AM EDT): Short [place] which could set her up for SVT, no delta wave, primary arhythmia does not appear consistent with her history ,no SVT on monitoring in the past Assessment & Plan (10/11/2020 11:05 AM EDT): Short [place] which could set her up for SVT, no delta wave, primary arhythmia does not appear consistent with her history ,no SVT on monitoring in the past Assessment & Plan (07/07/2020 11:01 AM EDT): Short [place] which could set her up for SVT, no delta wave, primary arhythmia does not appear consistent with her history ,no SVT on monitoring in the past Assessment & Plan (05/16/2020 11:18 PM EST): Short [place] which could set her up for SVT, no delta wave, primary arhythmia does not appear consistent with her history ,no SVT on monitoring in the past Encounters Date Type Department Care Team Description 01/03/2025 Refill [facility] [address] [facility], [address] [place] [phone] Leeanna Melgar, safe deposit attendant Refill from Last 3 Months Social History Tobacco Use Types Packs/Day Years [...] Description 01/21/2025 1:30 PM EDT Office Visit [facility] [address] [facility], [address] [place] [address] Kamilla Mancia MD [address] [place] [address] [email or web address] 06/13/2025 8:00 AM EDT Telemedicine [facility] [address] [facility] [address] [place] [address] Gonzalo Bedolla MD [address] [place] [address] [address] [place] [address] [email or web address] Health Maintenance Due Date Last Done Comments DEPRESSION SCREENING 2010 SMOKING Hx and SMOKELESS TOBACCO SCREENING 2011 HPV VACCINES (1 - 3-dose series) 2013 HIV ONE-TIME SCREENING (18-65 YEARS) 02/11/2016 PAP SMEAR 2019 INFLUENZA VACCINE (#1) 2024 , 03/02/2022, 12/27/2020, Additional history exists COVID-19 VACCINE (2024- season) 2024 02/01/2023, 02/02/2022, 02/02/2021, Additional history [...] Devices Not on file Insurance [facility] OF [facility] PPO BLUE [place] OUT OF [facility] PPO BLUE [place] OUT OF [facility] PPO BLUE [place] OUT OF STATE PPO BLUE [place] OUT OF STATE PPO BLUE [place] OUT OF STATE PPO SELECTIVE Care Teams Grove Superintendent Relationship Specialty Start Date End Date Kamini Rodriguez RN [email or web address] PCP - General 01/22/22 Kamini Rodriguez NP [address] [place] [address] Primary Care Physician 02/05/21 Additional Source Comments The information contained in this document represents components of the legal health record. It is not the complete legal health record.[facility]
--- OUTSIDE RECORDS SUMMARY | 2025-01-03 23:46 | XMS_ITS | Encounter Summary ---
Author Organization [facility] Address [facility] [employer] [facility] [address] [place] [address] Phone Care Team Providers Care Asphalt Blender Name Role Phone Kamini Rodriguez RN Primary Care Provider [phone] Reason for Visit * Reason Onset Date Comments Medication Refill 01/03/2025 Encounter Details Date Type Department Care Team (Late st Contact Info) Description 01/03/2025 Refill [facility] [address] [facility], [address] [place] [address] Leeanna Melgar, RN [address] [place] [address] [email or web address] Medication Refill Social History Tobacco Use Types Packs/Day Years [...] PM EDT documented as of this encounter Progress Notes * Leeanna Melgar RN - 01/03/2025 10:58 AM EDT At least one Rx below has no protocol and needs review. Rx Care Gap Status - Instructions for Clinical Staff (prescriber discretion applies): > Mismatch review guide > N/a - No action needed Visit Info Last visit: 01/08/2024 Kamilla Mancia MD - Cardiology [facility] > Requested f/u: Return in about 1 year (around 01/07/2025). Upcoming visit: 01/21/2025 Kamilla Mancia MD - Cardiology [facility] ACTIONS TAKEN BY Leeanna Melgar RN - Criteria met. Rx(s) without protocol Renewal is at prescriber discretion. - pyridostigmine bromide documented in this encounter Plan of Treatment Upcoming Encounters Date Type Department Care Team (Late st Contact Info) Description 01/21/2025 1:30 PM EDT Office Visit [facility] [address] [facility], [address] [place] [address] Kamilla Mancia MD [address] [facility], [address] [place] [phone] [email or web address] 06/13/2025 8:00 AM EDT Telemedicine [facility] [address] [place] [address] Gonzalo Bedolla MD [address] [place] [address] [email or web address] documented as of this encounter Visit Diagnoses Not on filedocumented in this encounter Care Teams Asphalt Blender Relationship Specialty Start Date End Date Kamini Rodriguez RN [email or web address] PCP - General 01/22/22 Kamini Rodriguez NP [address] [place] [address] Primary Care Physician 02/05/21 documented as of this encounter Additional Source Comments The information contained in this document represents components of the legal health record. It is not the complete legal health record.[facility]
--- OUTSIDE RECORDS SUMMARY | 2025-01-03 23:46 | XMS_ITS | Encounter Summary ---
Author Organization [facility] Address [address] [place] [address] [address] [place] [address] Phone Care Team Providers Care Hockey Instructor Name Role Phone Kamini Rodriguez RN Primary Care Provider [phone] Encounter Details Date Type Department Care Team (Late st Contact Info) Description 06/24/2023 Procedure Pass [facility] [address] [place] [address] Social History Tobacco Use Types Packs/Day Years [...] Description 01/21/2025 1:30 PM EDT Office [place] [facility] [place] [address], [address] [place] [address] Kamilla Mancia MD [address] [place] [address] [email or web address] 06/13/2025 8:00 AM EDT Telemedicine [facility] [address] [place] [address] [place] [address] Gonzalo Bedolla MD [address] [place] [address] [email or web address] documented as of this encounter Visit Diagnoses Not on filedocumented in this encounter Care Teams Hockey Instructor Relationship Specialty Start Date End Date Kamini Rodriguez RN [email or web address] PCP - General 01/22/22 Kamini Rodriguez, CD MANUFACTURING SUPERVISOR [address] [place] [address] Primary Care Physician 02/05/21 documented as of this encounter Additional Source Comments The information contained in this document represents components of the legal health record. It is not the complete legal health record.[facility]
--- OUTSIDE RECORDS SUMMARY | 2025-01-03 23:46 | XMS_ITS | Clinical Summary ---
Author Organization [facility] Address [address] [place] [address] Phone Care Team Providers Care Senior Government Program Analyst Name Role Phone Gia Ansari MD Primary Care Provider [phone] Gia Ansari MD Unavailable [phone] Gia Ansari MD Unavailable [phone] Leander Penn MD Unavailable [phone] Medications ondansetron ODT (Zofran-ODT) 4 mg disintegrating [...] of Treatment Not on file Care Teams Senior Government Program Analyst Relationship Specialty Start Date End Date Gia Ansari MD PCP - General 12/28/12 Gia Ansari MD PCP - Clinical PCP 12/28/12 Gia Ansari MD PCP - Insurance PCP 12/28/12 Leander Penn MD [address] [place] [address] Process Coach 09/06/23
--- OUTSIDE RECORDS SUMMARY | 2025-01-03 23:46 | XMS_ITS | Encounter Summary ---
Author Organization [facility] Address [address] [place] [address] [address] [place] [address] Phone Care Team Providers Care Fine Arts Chair Name Role Phone Kamini Rodriguez RN Primary Care Provider [phone] Encounter Details Date Type Department Care Team (Late st Contact Info) Description 06/24/[address] [facility] [address] [place] [address] Social History Tobacco Use Types Packs/Day Years [...] Description 01/21/2025 1:30 PM EDT [place] [facility] [place] [address], [address] [place] [address] Kamilla Mancia MD [address] [place] [address] [email or web address] 06/13/2025 8:00 AM EDT Telemedicine [facility] [address] [place] [address] [place] [address] Gonzalo Bedolla MD [address] [place] [address] [email or web address] documented as of this encounter Visit Diagnoses Not on filedocumented in this encounter Care Teams Fine Arts Chair Relationship Specialty Start Date End Date Kaimni Rodriguez RN [email or web address] PCP - General 01/22/22 Kamini Rodriguez, FLY TIER [address] [place] [address] Primary Care Physician 02/05/21 documented as of this encounter Additional Source Comments The information contained in this document represents components of the legal health record. It is not the complete legal health record.[facility]
--- OUTSIDE RECORDS SUMMARY | 2025-01-03 23:47 | XMS_ITS | Encounter Summary ---
Author Organization [facility] Address [address] [place] [address] [address] [place] [address] Phone Care Team Providers Care Dam Tender Assistant Name Role Phone Unknown, Unknown Primary Care Provider Kamini Jones RN Primary Care Provider [phone] Encounter Details Date Type Department Care Team (Late st Contact Info) Description 07/19/2021 Procedure Pass [facility] Cardiology [address] [place] [address], [address] [place] [address] Social History Tobacco Use Types Packs/Day Years [...] Description 01/21/2025 1:30 PM EDT Office Visit [facility] [address] [facility], [address] [place] [address] Kamilla Mancia MD 40 [facility], [address] [place] [address] [email or web address] 06/13/2025 8:00 AM EDT Telemedicine [facility] [address] [address] Gonzalo Bedolla MD [address] [address] [email or web address] documented as of this encounter Visit Diagnoses Not on filedocumented in this encounter Care Teams Dam Tender Assistant Relationship Specialty Start Date End Date Unknown, Unknown, MD PCP - General 02/20/21 01/21/22 Kamini Rodriguez RN [email or web address] PCP - General 01/22/22 Kamini Rodriguez NP [address] [place] [address] Primary Care Physician 02/05/21 documented as of this encounter Additional Source Comments The information contained in this document represents components of the legal health record. It is not the complete legal health record.[facility]
[2025-01-04 01:38] VITALS: BP 104/72; PULSE 79; RESP 16; TEMP 36.5; O2SAT 98
[2025-01-04 01:42] VITALS: BP 104/72; PULSE 79; RESP 16; TEMP 36.5; O2SAT 98
== END 2025-01-04 01:42 | disposition home or self-care (01) ==
PROVIDERS: Physician Assistant Medical; Emergency Provider Emergency Medicine
DX: G43.909 Migraine, unspecified, not intractable, without status migrainosus (principal); R10.2 Pelvic and perineal pain; R11.0 Nausea; Z79.899 Other long term (current) drug therapy; Z11.52 Encounter for screening for COVID-19
CPT/HCPCS: 36415; 80053; 83735; 84702; 85025; 87502; 87635; 96361; 96374; 96375; 99284; J0737; J1100; J1200; J1885

== ENCOUNTER 2025-01-24 20:28 | Emergency (ER) | payer BC, SELFPAY ==
--- OUTSIDE RECORDS SUMMARY | 2025-01-21 14:00 | XMS_ITS | Encounter Summary ---
Author Organization [facility] Address [address] [place] [address] [place] [address] Phone Care Team Providers Care Crochet Machine Operator Name Role Phone Kamini Rodriguez RN Primary Care Provider [phone] Encounter Details Date Type Department Care Team (Late st Contact Info) Description 01/21/2025 2:00 PM EDT Office [place] [facility] [place] [facility] [address] [facility], [address] [place] [address] Kamilla Mancia MD 40 [facility], [address] [place] [address] [email or web address] POTS (postural orthostatic tachycardia syndrome) (Primary Dx) Social History Tobacco Use Types Packs/Day Years [...] PM EDT documented as of this encounter Last Filed Vital Signs Vital Sign Reading Time Taken Comments Blood Pressure 98/60 01/21/2025 2:09 PM EDT Pulse 90 01/21/2025 2:09 PM EDT Temperature - - Respiratory Rate - - Oxygen Saturation - - Inhaled Oxygen Concentration - - Weight 44 kg (97 lb) 01/21/2025 2:09 PM EDT Height - - Body Mass Index 18.94 06/11/2024 8:47 AM EST documented in this encounter Patient Instructions * Patient Instructions* Kamilla Mancia MD - 01/21/2025 2:00 PM EDT Mestinon midodrine occ salt 1 g twice per day Track down the migraine documented in this encounter Plan of Treatment Upcoming Encounters Date Type Department Care Team (Late st Contact Info) Description 06/13/2025 8:00 AM EDT Telemedicine [facility] [address] [place] [address] [address] [place] [address] Gonzalo Bedolla MD [address] [place] [address] [email or web address] 01/20/2026 1:00 PM EDT Office [place] [facility] [place] [facility] [address] [place] [address], [address] [place] [address] Ashlee Boucher, PENOLOGY PROFESSOR [address] [place] [address] [email or web address] Scheduled Orders Name Type Priority Associated Diagnoses Orde r Schedule ECG 12-LEAD ECG Routine POTS (postural orthostatic tachycardia syndrome) Ordered: 01/21/2025 documented as of this encounter Visit Diagnoses Diagnosis POTS (postural orthostatic tachycardia syndrome)- Primary Unspecified tachycardia documented in this encounter Care Teams Crochet Machine Operator Relationship Specialty Start Date End Date Kamini Rodriguez RN [email or web address] PCP - General 01/22/22 Kamini Rodriguez NP [address] [place] [address] Primary Care Physician 02/05/21 documented as of this encounter Additional Source Comments The information contained in this document represents components of the legal health record. It is not the complete legal health record.[facility]
[2025-01-24 20:40] VITALS: BP 115/72; PULSE 99; RESP 18; TEMP 36.7; O2SAT 100; BMI 19.5
--- NOTE | 2025-01-24 20:41 | ED.GENADULT ---
HPI - General Adult General Chief complaint: Headache Stated complaint: migraine Time Seen by Provider: 01/24/25 21:25 Related Data Previous Rx's ?Medication ?Instructions ?Recorded ketorolac 10 mg tablet 10 mg PO Q6H PRN pain #20 tabs 01/04/25 prochlorperazine maleate 10 mg 10 mg PO Q8H PRN nausea and 01/04/25 tablet (Compazine) vomiting #10 tabs ibuprofen 400 mg tablet 400 mg PO Q6H PRN pain #20 tabs 01/25/25 ondansetron 4 mg disintegrating 4 mg PO TID PRN nausea and 01/25/25 tablet vomiting 5 days #10 tabs Allergies Allergy/AdvReac Type Severity Reaction Status Date / Time No Known Allergies Allergy Verified 01/24/25 20:43 [facility] Social History Social History Alcohol intake: current Smoked in Last 30 Days: No Use of substances other than those prescribed or required for medical reasons: No Advance Directives: No Advance Directives Information Provided: Yes Do you have a plan to hurt others: No Plan Physical Exam ED Vital Signs: Vital Signs - 24 hr 01/24/25 20:40 01/24/25 22:43 Temperature 98.1 F Pulse Rate 99 71 Respiratory Rate 18 16 Blood Pressure 115/72 102/65 Pulse Oximetry 100 Oxygen Delivery Method Room Air BMI result Body Mass Index 19.5 Course Course Course Narrative: RME: 24 yo F history of migraine headache hx of POTS started on Friday. Took amitryptiline, multiple syncopal episodes yesterday. Called neurologist. Was told to come to ED. Appears neurologically intact. Medications Administered Discontinued Medications Generic Name Dose Route Start Last Admin Trade Name Freq PRN Reason Stop Dose Admin Diphenhydramine HCl 25 mg 01/24/25 22:22 01/24/25 22:39 Diphenhydramine Hcl 50 Mg/Ml Vial IVPUSH 01/24/25 22:23 25 mg ONCE ONE Administration Sodium Chloride 1,000 mls @ 999 mls/hr 01/24/25 22:30 01/25/25 00:05 Ns IV 01/24/25 23:30 Infused .Q1H1M KAYLENE Infusion Sodium Chloride 1,000 mls @ 999 mls/hr 01/24/25 22:30 01/25/25 00:05 Ns IV 01/24/25 23:30 Infused .Q1H1M KAYLENE Infusion Ketorolac Tromethamine 15 mg 01/24/25 22:21 01/24/25 22:39 Ketorolac Tromethamine 15 Mg/Ml Vial IVPUSH 01/24/25 22:22 15 mg ONCE ONE Administration Metoclopramide HCl 10 mg 01/24/25 22:21 01/24/25 22:40 Metoclopramide Hcl 10 Mg/2 Ml Vial IVPUSH 01/24/25 22:22 10 mg ONCE ONE Administration Medical Decision Making Lab Data 01/24/25 21:26 01/24/25 21:26 Labs: Lab Results 01/24/25 Range/Units 21:26 WBC 7.4 (4.8-10.8) X10*3/uL RBC 3.92 L (4.20-5.50) X10*6/uL Hgb 11.5 L (12.0-16.0) g/dl Hct 34.0 L (37.0-47.0) % MCV 86.7 (80.0-98.0) fL MCH 29.3 (27.0-33.0) pg MCHC 33.8 (31.0-35.0) g/dl RDW 12.7 (11.0-16.0) % Plt Count 269 (160-400) X10*3/uL MPV 9.3 L (9.4-12.3) fL Immature Gran % (Auto) 0.3 (0.0-0.4) % Neut % (Auto) 65.7 (45-73) % Lymph % (Auto) 23.5 (20-40) % Bethel % (Auto) 8.6 (2-11) % Eos % (Auto) 1.4 (0-4) % Baso % (Auto) 0.5 (0-2) % Lymph # (Auto) 1.7 (1.2-4.9) X10*3/uL Bethel # (Auto) 0.6 (0.1-1.2) X10*3/uL Eos # (Auto) 0.1 (0.0-0.4) X10*3/uL Baso # (Auto) 0.0 (0.0-0.2) X10*3/uL Abs Immat Gran (auto) 0.02 (0.00-0.03) X10*3/uL Absolute Neuts (auto) 4.9 (2.0-8.3) x10*3/uL Absolute Nucleated RBC 0.000 (0.0-0.012) X10*3/uL Nucleated RBC % (auto) 0.0 (0.0-0.2) /100WBC Sodium 139 (135-145) mmol/L Potassium 3.9 (3.3-5.1) mmol/L Chloride 106 (96-108) mmol/L Carbon Dioxide 26 (22-29) mmol/L Anion Gap 11 L (12-20) BUN 12 (9-16) mg/dL Creatinine 0.63 (0.5-1.4) mg/dL Estim Creat Clear Calc 96.8 Estimated GFR > 60 Random Glucose 90 (60-115) mg/dL Calcium 8.7 (8.4-10.2) mg/dL Magnesium 2.1 (1.6-2.6) mg/dL Total Bilirubin 0.4 (0.0-1.0) mg/dL AST 16 (5-31) U/L ALT 9 (0-31) U/L Alkaline Phosphatase 50 (39-117) U/L Total Protein 6.1 L (6.5-8.0) g/dL Albumin 4.1 (3.5-5.0) g/dL Beta HCG, Quant < 2 mIU/mL Discharge Plan Discharge Clinical Impression: Migraine Patient Disposition: Home, Self-Care Instructions: Migraine Headache (ED) Prescriptions: New ibuprofen 400 mg tablet 400 mg PO Q6H PRN (Reason: pain) Qty: 20 0RF ondansetron 4 mg tablet,disintegrating 4 mg PO TID PRN (Reason: nausea and vomiting) 5 Days Qty: 10 0RF No Action ketorolac 10 mg tablet 10 mg PO Q6H PRN (Reason: pain) Qty: 20 0RF Rx Instructions: maximum total duration of 5 days from all oral, intranasal, or parenteral formulations. Patient received an IV dose of Toradol here in the emergency room. prochlorperazine maleate [Compazine] 10 mg tablet 10 mg PO Q8H PRN (Reason: nausea and vomiting) Qty: 10 0RF Referrals: Physician,Nonstaff [Primary Care Provider, Medical] - 3 days Stand Alone Forms: Work/School Release Print Language: Bengali
--- NOTE | 2025-01-24 20:53 | ECG_ITS ---
Test Reason : HEADACHE Blood Pressure : */* mmHG Vent. Rate : 79 BPM Atrial Rate : 79 BPM P-R Int : 128 ms QRS Dur : 74 ms QT Int : 352 ms P-R-T Axes : 70 56 54 degrees QTcB Int : 403 ms Normal sinus rhythm Normal ECG When compared with ECG of 22-Dec-2024 12:38, No significant change was found Referred By: Generic ED Physician Electronically Signed By: EDU WILLS MD
--- OUTSIDE RECORDS SUMMARY | 2025-01-24 21:14 | XMS_ITS | Encounter Summary ---
Author Organization [facility] Address [address] [place] [address] [address] [place] [address] Phone Care Team Providers Care Bleach Plant Operator Name Role Phone Kamini Rodriguez RN Primary Care Provider [phone] Encounter Details Date Type Department Care Team (Late st Contact Info) Description 06/24/2023 Procedure Pass [facility] [address] [place] [address] Social History Tobacco Use Types Packs/Day Years [...] Info) Description 06/13/2025 8:00 AM EDT Telemedicine [facility] [address] [place] [address] Gonzalo Bedolla MD [address] [facility] [address] [place] [address] [email or web address] 01/20/2026 1:00 PM EDT Office [facility] [address] [facility], [address] [place] [address] Ashlee Boucher, CARRIAGE SETTER [address] [facility] [place] [address] [email or web address] documented as of this encounter Visit Diagnoses Not on filedocumented in this encounter Care Teams Bleach Plant Operator Relationship Specialty Start Date End Date Kamini Rodriguez RN [email or web address] PCP - General 01/22/22 Kamini Rodriguez, NETWORK CONSULTANT [address] [place] [address] Primary Care Physician 02/05/21 documented as of this encounter Additional Source Comments The information contained in this document represents components of the legal health record. It is not the complete legal health record.[facility]
--- OUTSIDE RECORDS SUMMARY | 2025-01-24 21:14 | XMS_ITS | Encounter Summary ---
Author Organization [facility] Address [address] [place] [address] [address] [place] [address] Phone Care Team Providers Care National Investigative Producer Name Role Phone Kamini Rodriguez RN Primary Care Provider [phone] Encounter Details Date Type Department Care Team (Late st Contact Info) Description 06/24/2023 Procedure Pass [facility] [address] [place] [address] Social History Tobacco Use Types Packs/Day Years [...] Info) Description 06/13/2025 8:00 AM EDT Telemedicine [facility] [address] [place] [address] Gonzalo Bedolla MD [address] [facility] [address] [place] [address] [email or web address] 01/20/2026 1:00 PM EDT Office [facility] [address] [facility], [address] [place] [address] Ashlee Boucher, MILK DELIVERY DRIVER [address] [facility] [place] [address] [email or web address] documented as of this encounter Visit Diagnoses Not on filedocumented in this encounter Care Teams National Investigative Producer Relationship Specialty Start Date End Date Kamini Rodriguez RN [email or web address] PCP - General 01/22/22 Kamini Rodriguez, COMMERCIAL PROPERTY MANAGER [address] [place] [address] Primary Care Physician 02/05/21 documented as of this encounter Additional Source Comments The information contained in this document represents components of the legal health record. It is not the complete legal health record.[facility]
--- OUTSIDE RECORDS SUMMARY | 2025-01-24 21:14 | XMS_ITS | Clinical Summary ---
Author Organization [facility] Address [address] [place] [address] Phone Care Team Providers Care Chart Snatcher Name Role Phone Gia Ansari MD Primary Care Provider [phone] Gia Ansari MD Unavailable [phone] Gia Ansari MD Unavailable [phone] Leander Penn MD Unavailable [phone] Medications ondansetron ODT (Zofran-ODT) 4 mg [...] of Treatment Not on file Care Teams Chart Snatcher Relationship Specialty Start Date End Date Gia Ansari MD PCP - General 12/28/12 Gia Ansari MD PCP - Clinical PCP 12/28/12 Gia Ansari MD PCP - Insurance PCP 12/28/12 Leander Penn MD [address] [place] [address] Supervisor Facepiece Line 09/06/23
--- OUTSIDE RECORDS SUMMARY | 2025-01-24 21:15 | XMS_ITS | Encounter Summary ---
Author Organization [facility] Address [address] [place] [address] [address] [place] [address] Phone Care Team Providers Care Machine Trimmer Name Role Phone Unknown, Unknown Primary Care Provider Kamini Jones RN Primary Care Provider [phone] Encounter Details Date Type Department Care Team (Late st Contact Info) Description 07/19/2021 Procedure Pass [facility] [address] [facility], [address] [place] [address] Social History Tobacco Use Types Packs/Day Years [...] Info) Description 06/13/2025 8:00 AM EDT Telemedicine [facility] [address] [place] [address] [place] [address] Gonzalo Bedolla MD [address] [place] [address] [email or web address] 01/20/2026 1:00 PM EDT Office Visit [facility] [address] [facility], [address] [place] [address] Ashlee Boucher, WIRE MILL OPERATOR [address] [place] [address] [email or web address] documented as of this encounter Visit Diagnoses Not on filedocumented in this encounter Care Teams Machine Trimmer Relationship Specialty Start Date End Date Unknown, Unknown, PCP - General 02/20/21 01/21/22 Kamini Rodriguez RN [email or web address] PCP - General 01/22/22 Kamini Rodriguez NP [address] [place] [address] Primary Care Physician 02/05/21 documented as of this encounter Additional Source Comments The information contained in this document represents components of the legal health record. It is not the complete legal health record.[facility]
--- OUTSIDE RECORDS SUMMARY | 2025-01-24 21:15 | XMS_ITS | Clinical Summary ---
Author Organization [facility] Address [address] [place] [phone] Phone Care Team Providers Care Geriatric Care Manager Name Role Phone Kamini Rodriguez RN Primary Care Provider [phone] Allergies No known active allergies Medications norethindrone-ethi [...] Take 400 Units by mouth daily. Active multivitamin stress B with zinc (SURBEX 750 WITH ZINC TABLET) Tab Take 1 tablet by mouth daily. Active etonogestreL (NEXPLANON) 68 mg Impl Inject 68 mg into the skin Once every 3 years. Active eletriptan (RELPAX) 40 MG tablet Take 1 tablet (40 mg total) by mouth as needed (migraine). may repeat in 2 hours if necessary. Maximum 2 tablets in 24 hours 9 tablet 5 01/06/20 25 Active amitriptyline (ELAVIL) 25 MG tablet Take 1 tablet (25 mg total) by mouth nightly at bedtime. TAKE ONE TABLET BY MOUTH AT BEDTIME 90 tablet 3 01/20/20 25 Active pyRIDostigmine (MESTINON) 60 mg tablet Take 1 tablet (60 mg total) by mouth 2 (two) times a day. 180 tablet 3 01/22/20 25 Active midodrine (PROAMATINE) 10 MG tablet Take 1 tablet (10 mg total) by mouth every morning. As needed 30 tablet 11 01/22/20 25 Active sodium chloride 1,000 mg tablet Take 1 tablet (1,000 mg total) by mouth 3 (three) times a day. 270 tablet 3 01/22/20 25 Active pyRIDostigmine (MESTINON) 60 mg tablet Take 1 tablet (60 mg total) by mouth 2 (two) times a day. 60 tablet 11 01/08/20 24 025 Discontin ued(Reord er) sodium chloride 1,000 mg tablet Take 1 tablet (1,000 mg total) by mouth 3 (three) times a day. 270 tablet 3 01/08/20 24 025 Discontin ued(Reord er) midodrine (PROAMATINE) 10 MG tablet Take 1 tablet (10 mg total) by mouth every morning. As needed 30 tablet 11 01/08/20 24 025 Discontin ued(Reord er) rizatriptan (MAXALT-STRATEGIC SOURCING MANAGER) 10 MG disintegrating tablet Take 1 tablet (10 mg total) by mouth as needed for migraine. May repeat in 2 hours if needed 9 tablet 5 06/12/19 25 025 Discontin ued(No longer taking) amitriptyline (ELAVIL) 25 MG tablet Take 1 tablet (25 mg total) by mouth nightly at bedtime. TAKE ONE TABLET BY MOUTH AT BEDTIME 90 tablet 3 06/12/19 25 025 Discontin ued(Reord er) pyRIDostigmine (MESTINON) 60 mg tablet Take 1 tablet (60 mg total) by mouth 2 (two) times a day. 60 tablet 11 01/04/20 25 025 Discontin ued(Reord er) Active Problems Problem Noted Date Diagnosed Date BPPV (benign paroxysmal posi tional vertigo), unspecified laterality 01/24/2020 POTS (postural orthostatic tachycardia syndrome) Overview (01/21/2025): Mestinon midodrine occ salt 1 g twice per day Track down the migraine Assessment & Plan (01/17/2024 4:13 PM EDT): [...] at the one month yin! Use a aaTagbit or Apple watch to count steps Message me via [place] with progress at the 4 month yin. [...] of Dysautonomia. By Magali Cochran Echo in [place] AFT tilt table in [place] Assessment & Plan (05/24/2021 1:40 PM EST): [...] and looking forward to a trip to [facility] over the holidays. To adjust meds to [...] & Plan (05/24/2021 1:36 PM EST): Short CA which could set her up for SVT, no delta wave, primary arhythmia does not appear consistent with her history, no SVT on monitoring in the past Assessment & Plan (02/09/2021 1:08 PM EDT): Short CA which could set her up for SVT, no delta wave, primary arhythmia does not appear consistent with her history, no SVT on monitoring in the past Assessment & Plan (10/23/2020 9:16 AM EDT): Short CA which could set her up for SVT, no delta wave, primary arhythmia does not appear consistent with her history ,no SVT on monitoring in the past Assessment & Plan (10/11/2020 11:05 AM EDT): Short CA which could set her up for SVT, no delta wave, primary arhythmia does not appear consistent with her history ,no SVT on monitoring in the past Assessment & Plan (07/07/2020 11:01 AM EDT): Short CA which could set her up for SVT, no delta wave, primary arhythmia does not appear consistent with her history ,no SVT on monitoring in the past Assessment & Plan (05/16/2020 11:18 PM EST): Short CA which could set her up for SVT, no delta wave, primary arhythmia does not appear consistent with her history ,no SVT on monitoring in the past Encounters Date Type Department Care Team Description 01/21/2025 2:00 PM EDT Office Visit [facility] Cardiology [address], [address] [place] [address] Kamilla Mancia MD POTS (postural orthostatic tachycardia syndrome) (Primary Dx) 01/05/2025 Orders Only [facility] [address] [place] [address] Gonzalo Bedolla MD 01/03/2025 Refill [facility] [address], [address] [place] [address] Leeanna Melgar, curatorial assistant Refill from Last 3 Months Social History [...] Pulse 90 01/21/2025 2:09 PM EDT Temperature 36.5 C (97.7 F) 01/28/2023 2:04 PM EDT Respiratory Rate - - Oxygen Saturation 98% 01/28/2023 2:04 PM EDT Inhaled Oxygen Concentration - - Weight 44 kg (97 lb) 01/21/2025 2:09 PM EDT Height 152.4 cm (5') 06/11/2024 8:47 AM EST Body Mass Index 18.94 06/11/2024 8:47 AM EST Plan of Treatment Upcoming Encounters Date Type Department Care Team (Late st Contact Info) Description 06/13/2025 8:00 AM EDT Telemedicine [facility] [address] [place] [address] Gonzalo Bedolla MD [address] [place] [phone] [email or web address] 01/20/2026 1:00 PM EDT Office Visit [facility] Cardiology [facility] [address], [address] [place] [id number] Ashlee Boucher, SENIOR GENETIC COUNSELOR [address] [place] [address] [email or web address] Health Maintenance Due Date Last Done Comments [...] topic Medical Devices Not on file Insurance CROSS OUT OF [facility] P[facility] OUT OF [facility] P[facility] BLUE CROSS OUT OF [facility] BLUE CROSS OUT OF [facility] CROSS OUT OF [facility] PPO SELECTIVE Care Teams Geriatric Care Manager Relationship Specialty Start Date End Date Kamini Rodriguez RN [email or web address] PCP - General 01/22/22 Kamini Rodriguez NP [address] [place] [address] Primary Care Physician 02/05/21 Additional Source Comments The information contained in this document represents components of the legal health record. It is not the complete legal health record.[facility]
[2025-01-24 21:31] LABS: MANUAL DIFF FLAG NO
[2025-01-24 21:32] LABS: Hematocrit 34.0 % (37.0-47.0); Hemoglobin 11.5 g/dl (12.0-16.0); Imm Gran Abs Auto 0.02 X10*3/uL (0.00-0.03); Imm Gran Pct Auto 0.3 % (0.0-0.4); Lymphocytes Absolute Auto 1.7 X10*3/uL (1.2-4.9); Mean Corpuscular HGB Conc 33.8 g/dl (31.0-35.0); Mean Corpuscular Hemoglobin 29.3 pg (27.0-33.0); Mean Corpuscular Volume 86.7 fL (80.0-98.0); NRBC Abs Auto 0.000 X10*3/uL (0.0-0.012); NRBC Pct Auto 0.0 /100WBC (0.0-0.2); Platelet Count 269 X10*3/uL (160-400); Red Blood Count 3.92 X10*6/uL (4.20-5.50); White Blood Count 7.4 X10*3/uL (4.8-10.8)
[2025-01-24 22:02] LABS: Alanine Aminotransferase 9 U/L (0-31); Albumin Level 4.1 g/dL (3.5-5.0); Alkaline Phosphatase 50 U/L (39-117); Anion Gap 11 (12-20); Aspartate Amino Transferase 16 U/L (5-31); Blood Urea Nitrogen 12 mg/dL (9-16); Calcium 8.7 mg/dL (8.4-10.2); Carbon Dioxide 26 mmol/L (22-29); Chloride 106 mmol/L (96-108); Creatinine Clr Calc Pharmacy 96.8; Estimated Glomerular Filt Rate > 60; Magnesium 2.1 mg/dL (1.6-2.6); Potassium 3.9 mmol/L (3.3-5.1); Sodium 139 mmol/L (135-145); Total Protein 6.1 g/dL (6.5-8.0)
--- NOTE | 2025-01-24 22:25 | ED_ITS ---
HPI - Headache General Chief Complaint: Headache Stated Complaint: migraine Time Seen by Provider: 01/24/25 21:25 History of Present Illness HPI Narrative: Patient is a 24-year-old female presents today with having headache that is in the frontal area. Very similar to previous bouts of migraine. Patient is from home. No fever no chills. No focal weakness. History of being on amitriptyline. Also on eletriptan. Complaining of headache mostly in the frontal area associated with nausea worsened with noise there is no focal weakness. Has a history of pots disease. Patient's been feeling weak on standing. Question syncopal episode. Patient from home. No history of blood clots in the past. No fever no chills. Related Data Previous Rx's ?Medication ?Instructions ?Recorded ketorolac 10 mg tablet 10 mg PO Q6H PRN pain #20 ta bs 01/04/25 prochlorperazine maleate 10 mg 10 mg PO Q8H PRN nausea and 01/04/25 tablet (Compazine) vomiting #10 tabs ibuprofen 400 mg tablet 400 mg PO Q6H PRN pain #20 t abs 01/25/25 ondansetron 4 mg disintegrating 4 mg PO TID PRN nausea and 01/25/25 tablet vomiting 5 days #10 tabs Allergies Allergy/AdvReac Type Severity Reaction Status Date / Time No Known Allergies Allergy Verified 01/24/25 20:43 Review of Systems 2 Review of Systems: No focal weakness Yes all other systems are reviewed and are negative [facility] Past Medical History Attestation statement: The following information was validated with the patient. Social History Social History Alcohol intake: current Smoked in Last 30 Days: No Use of substances other than those prescribed or required for medical reasons: No Advance Directives: No Advance Directives Information Provided: Yes Do you have a plan to hurt others: No Plan Physical Exam 2 Exam: Exam: Appearance: Alert. Oriented X3. No acute distress. Eyes: Pupils equal, round and reactive to light. ENT: Pharynx normal. Neck: Normal inspection. Neck supple. No lymph nodes noted. No crepitus CVS: Normal heart rate and rhythm. Pulses normal. Normal S1 and S2 Respiratory: No respiratory distress. Breath sounds normal. No Wheezing. No rales Abdomen: Soft and nontender. No rigidity. No distention. good BS x4 Skin: Skin warm and dry. Normal skin color. Normal skin turgor. Extremities: No lower extremity edema. Neurovascular intact to all extremities. No Lacerations. No Rash Neuro: Oriented X 3. No motor deficit. No sensory deficit. Moving all extermities. No slurred speech Vital Signs: Vital Signs: Last Vital Signs Temp 98.1 F 01/24/25 20:40 Pulse 71 01/24/25 22:43 Resp 16 01/24/25 22:43 BP 102/65 01/24/25 22:43 Pulse Ox 100 01/24/25 20:40 O2 Del Method Room Air 01/24/25 20:40 BMI result Body Mass Index 19.5 Medications Administered Discontinued Medications Generic Name Dose Route Start Last Admin Trade Name Freq PRN Reason Stop Dose Admin Diphenhydramine HCl 25 mg 01/24/25 22:22 01/24/25 22:39 Diphenhydramine Hcl 50 Mg/Ml Vial IVPUSH 01/24/25 22:23 25 mg ONCE ONE Administration Sodium Chloride 1,000 mls @ 999 mls/hr 01/24/25 22:30 01/25/25 00:05 Ns IV 01/24/25 23:30 Infused .Q1H1M KAYLENE Infusion Sodium Chloride 1,000 mls @ 999 mls/hr 01/24/25 22:30 01/25/25 00:05 Ns IV 01/24/25 23:30 Infused .Q1H1M KAYLENE Infusion Ketorolac Tromethamine 15 mg 01/24/25 22:21 01/24/25 22:39 Ketorolac Tromethamine 15 Mg/Ml Vial IVPUSH 01/24/25 22:22 15 mg ONCE ONE Administration Metoclopramide HCl 10 mg 01/24/25 22:21 01/24/25 22:40 Metoclopramide Hcl 10 Mg/2 Ml Vial IVPUSH 01/24/25 22:22 10 mg ONCE ONE Administration Medical Decision Making Medical Decision Making [facility] Narrative: Well-appearing. Patient's symptoms consistent with migraine headache. Does also has a history of POTS. Patient's EKG by my interpretation showed a sinus rhythm heart rate is 70 VA QRS QTC normal there is no acute ST segment elevation. test is negative no related issue. Patient's white count is normal. Hemoglobin is 11.5 no signs of anemia. Patient's electrolytes are normal. test is negative. Will give IV fluids. Migraine treatment including Reglan, Benadryl, Toradol. Patient given migraine cocktail with good relief of symptoms wants to go home will discharge home neurologically intact. Did not feel dizzy on standing. In stable condition. Differential Diagnosis Differential Diagnoses: The differential diagnosis associated with the presentation includes Intracranial bleed, migraine, tension headache, meningitis Admission/Observation Consideration of admission/observation: Escalation of care including admission/observation considered Lab Data MDM Lab Attestation statement: I reviewed the patient's lab results. 01/24/25 21:26 01/24/25 21:26 Labs: Lab Results 01/24/25 Range/Units 21:26 WBC 7.4 (4.8-10.8) X10*3/uL RBC 3.92 L (4.20-5.50) X10*6/uL Hgb 11.5 L (12.0-16.0) g/dl Hct 34.0 L (37.0-47.0) % MCV 86.7 (80.0-98.0) fL MCH 29.3 (27.0-33.0) pg MCHC 33.8 (31.0-35.0) g/dl RDW 12.7 (11.0-16.0) % Plt Count 269 (160-400) X10*3/uL MPV 9.3 L (9.4-12.3) fL Immature Gran % (Auto) 0.3 (0.0-0.4) % Neut % (Auto) 65.7 (45-73) % Lymph % (Auto) 23.5 (20-40) % Towns % (Auto) 8.6 (2-11) % Eos % (Auto) 1.4 (0-4) % Baso % (Auto) 0.5 (0-2) % Lymph # (Auto) 1.7 (1.2-4.9) X10*3/uL Towns # (Auto) 0.6 (0.1-1.2) X10*3/uL Eos # (Auto) 0.1 (0.0-0.4) X10*3/uL Baso # (Auto) 0.0 (0.0-0.2) X10*3/uL Abs Immat Gran (auto) 0.02 (0.00-0.03) X10*3/uL Absolute Neuts (auto) 4.9 (2.0-8.3) x10*3/uL Absolute Nucleated RBC 0.000 (0.0-0.012) X10*3/uL Nucleated RBC % (auto) 0.0 (0.0-0.2) /100WBC Sodium 139 (135-145) mmol/L Potassium 3.9 (3.3-5.1) mmol/L Chloride 106 (96-108) mmol/L Carbon Dioxide 26 (22-29) mmol/L Anion Gap 11 L (12-20) BUN 12 (9-16) mg/dL Creatinine 0.63 (0.5-1.4) mg/dL Estim Creat Clear Calc 96.8 Estimated GFR > 60 Random Glucose 90 (60-115) mg/dL Calcium 8.7 (8.4-10.2) mg/dL Magnesium 2.1 (1.6-2.6) mg/dL Total Bilirubin 0.4 (0.0-1.0) mg/dL AST 16 (5-31) U/L ALT 9 (0-31) U/L Alkaline Phosphatase 50 (39-117) U/L Total Protein 6.1 L (6.5-8.0) g/dL Albumin 4.1 (3.5-5.0) g/dL Beta HCG, Quant < 2 mIU/mL Chronic Conditions Migraine headache Social Determinants Patient?s care significantly limited by Social Determinants of Health including: Problems related to primary support group Discharge Plan Discharge Clinical Impression: Migraine Patient Disposition: Home, Self-Care Instructions: Migraine Headache (ED) Prescriptions: New ibuprofen 400 mg tablet 400 mg PO Q6H PRN (Reason: pain) Qty: 20 0RF ondansetron 4 mg tablet,disintegrating 4 mg PO TID PRN (Reason: nausea and vomiting) 5 Days Qty: 10 0RF No Action ketorolac 10 mg tablet 10 mg PO Q6H PRN (Reason: pain) Qty: 20 0RF Rx Instructions: maximum total duration of 5 days from all oral, intranasal, or parenteral formulations. Patient received an IV dose of Toradol here in the emergency room. prochlorperazine maleate [Compazine] 10 mg tablet 10 mg PO Q8H PRN (Reason: nausea and vomiting) Qty: 10 0RF Referrals: Physician,Nonstaff [Primary Care Provider, Medical] - 3 days Stand Alone Forms: Work/School Release Print Language: Amharic
[2025-01-24 22:43] VITALS: BP 102/65; PULSE 71; RESP 16
[2025-01-25 01:14] VITALS: BP 99/61; PULSE 95; RESP 18; TEMP 36.4; O2SAT 98
== END 2025-01-25 01:15 | disposition home or self-care (01) ==
PROVIDERS: Emergency Provider Emergency Medicine Emergency Medical Services
DX: G43.909 Migraine, unspecified, not intractable, without status migrainosus (principal); R10.22 Pelvic and perineal pain left side; R11.0 Nausea
CPT/HCPCS: 36415; 80053; 83735; 84702; 85025; 93005; 96361; 96374; 96375; 99284; 99285; J1200; J1885; J2765

== ENCOUNTER → 2025-01-24 20:53 | Outpatient (BNV) | payer BC, SELFPAY | PROVIDERS: Emergency Provider Emergency Medicine Emergency Medical Services; Visit Provider Internal Medicine Cardiovascular Disease | DX: R51.9 Headache, unspecified (principal) | CPT/HCPCS: 93010 ==

== ENCOUNTER 2025-03-15 18:45 | Emergency (ER) | payer BC, SELFPAY ==
--- NOTE | ~2025-03-15 | CT_ITS ---
CLINICAL HISTORY: syncope, fall, head trauma CT cervical spine without contrast Comparison: None provided Findings: Reversal of the normal cervical lordosis, which may be postional. No significant degenerative change. No acute fractures or dislocations. No cervical fluid collections or masses. Lung apices are clear. IMPRESSION: No acute fracture or traumatic subluxation. This document has been electronically signed by: Rae Cervantes MD on 03/15/2025 21:11:32
--- NOTE | ~2025-03-15 | CT_ITS ---
CLINICAL HISTORY: hit head on brick CT Head without contrast Comparison: CT/SR - CT HEAD WITHOUT IV CONTRAST - 12/22/2024 01:35 PM EDT Findings: No large vessel territory infarct. No acute intracranial hemorrhage. No mass effect, midline shift, or herniation. The pituitary gland and sella are unremarkable. The cerebellar tonsils are appropriately positioned. Orbits: Unremarkable. Paranasal sinuses: Well aerated. The mastoid air cells are well aerated. The soft tissues are unremarkable. No acute displaced calvarial fracture. Impression: No acute intracranial abnormality. This document has been electronically signed by: Rae Cervantes MD on 03/15/2025 21:28:53
[2025-03-15 19:32] VITALS: BP 123/85; PULSE 93; RESP 16; TEMP 36.6; O2SAT 100; BMI 19.3
--- NOTE | 2025-03-15 19:38 | ECG_ITS ---
Test Reason : DIZZINESS, SYNCOPE Blood Pressure : */* mmHG Vent. Rate : 97 BPM Atrial Rate : 97 BPM P-R Int : 104 ms QRS Dur : 70 ms QT Int : 340 ms P-R-T Axes : 65 51 48 degrees QTcB Int : 431 ms Sinus rhythm with short VA Otherwise normal ECG When compared with ECG of 24-Jan-2025 21:08, No significant change was found Referred By: Wale Rico Electronically Signed By: EDU WILLS MD
--- NOTE | 2025-03-15 19:38 | ED_ITS ---
HPI - General Adult General Chief complaint: Headache Stated complaint: Concussion Like Symptoms, Migraine Time Seen by Provider: 03/15/25 21:42 History of Present Illness ED Provider: Raya Castellano NP HPI narrative: 25-year-old female patient medical history significant for POTS, migraine headaches presents to the ED with her boyfriend complaining of a migraine ongoing for 3 days. Patient reports that she had a syncopal event 2 days ago where she fully passed out and struck her head on bricks on the ground, a reports that she believes this was due to a severe headache. Since then she has had nausea, poor p.o. intake and light sensitivity. She denies any chest pain or pressure, shortness of breath, abdominal pain. Patient reports that she is being worked up by Cardiology as well as Neurology for her POTS episodes and migraine headaches, as they believe they are related. No fever, chills, recent illnesses. No urinary complaints. Denies chance of . Related Data Previous Rx's ?Medication ?Instructions ?Recorded ketorolac 10 mg tablet 10 mg PO Q6H PRN pain #20 ta bs 01/04/25 prochlorperazine maleate 10 mg 10 mg PO Q8H PRN nausea and 01/04/25 tablet (Compazine) vomiting #10 tabs ibuprofen 400 mg tablet 400 mg PO Q6H PRN pain #20 t abs 01/25/25 ondansetron 4 mg disintegrating 4 mg PO TID PRN nausea and 01/25/25 tablet vomiting 5 days #10 tabs Allergies Allergy/AdvReac Type Severity Reaction Status Date / Time No Known Allergies Allergy Verified 03/15/25 19:36 Review of Systems 2 Review of Systems: ROS is otherwise negative unless mentioned in HPI. [facility] Social History Social History Alcohol intake: never Use of substances other than those prescribed or required for medical reasons: No Advance Directives: No Advance Directives Information Provided: No Patient : No Physical Exam ED Exam Exam: Nursing notes and vital signs reviewed. Constitutional: Well-appearing, NAD. Alert. Oriented X3. Eyes: Pupils equal, round and reactive to light. EOMI. ENT: Pharynx normal. Neck: Normal inspection. Neck supple. No midline C-spine tenderness, ROM intact. CVS: Normal heart rate and rhythm. Pulses normal. Respiratory: No respiratory distress. Breath sounds normal. Abdomen: Soft and nontender. +BSx4. Skin: Skin warm and dry. Normal skin color. Extremities: No lower extremity edema. Neuro: Oriented X 3. No dysmetria, [id number] intact. No motor deficit. Vital Signs: Vital Signs - 24 hr 03/15/25 19:32 03/15/25 20:50 03/15/25 21:43 Temperature 98 F 98.1 F 98.3 F Pulse Rate 93 99 78 Respiratory Rate 16 16 12 Blood Pressure 123/85 102/63 118/66 Pulse Oximetry 100 98 99 Oxygen Delivery Method Room Air Room Air Room Air 03/15/25 21:44 03/15/25 21:44 03/15/25 21:47 Temperature Pulse Rate 78 86 92 Respiratory Rate Blood Pressure 118/66 123/83 130/95 H Pulse Oximetry Oxygen Delivery Method 03/16/25 00:44 03/16/25 01:00 Temperature 98.3 F 98.3 F Pulse Rate 86 86 Respiratory Rate 16 16 Blood Pressure 118/76 118/76 Pulse Oximetry 98 98 Oxygen Delivery Method Room Air Room Air BMI result Body Mass Index 19.3 Course Course Course Narrative: RmE: 25-year-old female history of POTS and migraines presents to ED for multiple syncopal episodes, headache, and also hitting head or book. Labs EKG imaging ordered Medications Administered Discontinued Medications Generic Name Dose Route Start Last Admin Trade Name Freq PRN Reason Stop Dose Admin Diphenhydramine HCl 12.5 mg 03/15/25 22:02 03/15/25 23:01 Diphenhydramine Hcl 50 Mg/Ml Vial IM 03/15/25 22:03 12.5 mg ONCE ONE Administration Sodium Chloride 1,000 mls @ 999 mls/hr 03/15/25 22:02 03/16/25 00:27 Ns IV 03/15/25 23:02 Infused .Q1H1M ONE Infusion Ketorolac Tromethamine 15 mg 03/15/25 22:02 03/15/25 23:02 Ketorolac Tromethamine 15 Mg/Ml Vial IVPUSH 03/15/25 22:03 15 mg ONCE ONE Administration Prochlorperazine Edisylate 10 mg 03/15/25 22:02 03/15/25 23:02 Prochlorperazine Edisylate 10 Mg/2 Ml Vial IVPUSH 03/15/25 22:03 10 mg ONCE ONE Administration Medical Decision Making Medical Decision Making [facility] Narrative: 10:00 PM 03/15/2025 (Raya Castellano NP): Upon my assessment, she overall appears well. She answers questions appropriately. She is wearing sunglasses, reports that the light is bothering her. Her neuro exam is intact, nonfocal. She was seen by the triage provider who ordered CT imaging of the head, C-spine which reveals no acute abnormality. She also had basic lab work, which was overall reassuring. Nonischemic EKG. Negative HCG. Currently pending troponin, we will add on urinalysis and reassess. 11:22 PM 03/15/2025 (Raya Castellano, JOHN): Urinalysis does not show signs of . Negative urine . Currently pending troponin. She was ordered for a migraine cocktail. Pending reassessment. 12:11 AM 03/16/2025 (Raya Castellano NP): Troponin is negative. She reports significant improvement after the migraine cocktail. She has close follow up with Neurology, Cardiology outpatient. No indication for additional workup. Agreeable with discharge plan. Provided return precautions to the ED. Differential Diagnosis Differential Diagnoses: The differential diagnosis associated with the presentation includes , pots, syncope, intracranial hemorrhage Admission/Observation Consideration of admission/observation: Escalation of care including admission/observation considered (Not indicated) Lab Data [facility] Lab Attestation statement: I reviewed the patient's lab results. (Overall reassuring.) 03/15/25 21:17 03/15/25 21:17 Labs: Lab Results 03/15/25 03/15/25 Range/Units 21:17 22:07 WBC 7.5 (4.8-10.8) X10*3/uL RBC 4.65 (4.20-5.50) X10*6/uL Hgb 13.4 (12.0-16.0) g/dl Hct 40.3 (37.0-47.0) % MCV 86.7 (80.0-98.0) fL MCH 28.8 (27.0-33.0) pg MCHC 33.3 (31.0-35.0) g/dl RDW 12.1 (11.0-16.0) % Plt Count 344 D (160-400) X10*3/uL MPV 9.4 (9.4-12.3) fL Immature Gran % (Auto) 0.3 (0.0-0.4) % Neut % (Auto) 64.3 (45-73) % Lymph % (Auto) 26.5 (20-40) % Isabella % (Auto) 6.2 (2-11) % Eos % (Auto) 2.3 (0-4) % Baso % (Auto) 0.4 (0-2) % Lymph # (Auto) 2.0 (1.2-4.9) X10*3/uL Isabella # (Auto) 0.5 (0.1-1.2) X10*3/uL Eos # (Auto) 0.2 (0.0-0.4) X10*3/uL Baso # (Auto) 0.0 (0.0-0.2) X10*3/uL Abs Immat Gran (auto) 0.02 (0.00-0.03) X10*3/uL Absolute Neuts (auto) 4.9 (2.0-8.3) x10*3/uL Absolute Nucleated RBC 0.000 (0.0-0.012) X10*3/uL Nucleated RBC % (auto) 0.0 (0.0-0.2) /100WBC PT 10.8 L (11.2-13.5) SEC INR 0.9 (0.9-1.1) APTT 30.7 (26.7-34.1) SEC Sodium 140 (135-145) mmol/L Potassium 3.6 (3.3-5.1) mmol/L Chloride 107 (96-108) mmol/L Carbon Dioxide 27 (22-29) mmol/L Anion Gap 10 L (12-20) BUN 12 (9-16) mg/dL Creatinine 0.70 (0.5-1.4) mg/dL Estim Creat Clear Calc 85.5 Estimated GFR > 60 Random Glucose 90 (60-115) mg/dL Calcium 9.3 D (8.4-10.2) mg/dL Total Bilirubin 0.3 (0.0-1.0) mg/dL AST 21 (5-31) U/L ALT 12 (0-31) U/L Alkaline Phosphatase 67 (39-117) U/L Troponin I High Sens < 2.7 (<3.5-17.0) ng/L Total Protein 7.8 (6.5-8.0) g/dL Albumin 5.1 H (3.5-5.0) g/dL Beta HCG, Quant < 2 mIU/mL Urine Color Yellow Urine Appearance Clear Urine pH 7.5 (5.0-9.0) Ur Specific [place] 1.015 (1.005-1.025) Urine Protein Negative (Neg-Trace) mg/dL Urine Glucose (UA) Negative (Negative) mg/dL Urine Ketones Negative (Negative) mg/dL Urine Blood Negative (Negative) Urine Nitrite Negative (Negative) Ur Leukocyte Esterase Negative (Negative) Urine Test NEGATIVE (NEGATIVE) Independent Interpretation I performed an independent interpretation of an: EKG Interpretation: Rate: 97 Rhythm: NSR [place]: 65/51/48 Normal P waves. Normal NUHA. Normal QRS complex. ST T wave : no dep, elev qTC: 431 prior studies: similar The study has been interpreted contemporaneously by me. Radiology Impression Discussion of test interpretation with radiology: I have reviewed the radiologist's reading. Radiologist Impression: CT Head WO Impression: No acute intracranial abnormality. CT C-spine WO IMPRESSION: No acute fracture or traumatic subluxation. Independent Historian Clinical information obtained from an independent historian. History obtained from or confirmed by: Spouse External Record Review External record reviewed: Office record and Other (Prior ED records) Chronic Conditions Patient?s care impacted by: Other (Migraine headaches, pots) Social Determinants Patient?s care significantly limited by Social Determinants of Health including: Problems related to primary support group Discharge Plan Discharge Clinical Impression: Migraine Qualifiers: Migraine type: unspecified Status migrainosus presence: without status migrainosus Intractability: not intractable Qualified Code(s): G43.909 - Migraine, unspecified, not intractable, without status migrainosus Patient Disposition: Home, Self-Care Instructions: Migraine Headache (ED) Additional Instructions: As we discussed, CT imaging of the head, C-spine was reassuring in the emergency department today. Your urinalysis showed no signs of infection, and lab work was overall reassuring, including a cardiac enzyme. It is very important that you follow up with your neurologist, cheese tester outpatien within the next 1-3 days. If you develop any worsening complaints at any time, please return back to the ED for further assessment. Prescriptions: No Action ketorolac 10 mg tablet 10 mg PO Q6H PRN (Reason: pain) Qty: 20 0RF Rx Instructions: maximum total duration of 5 days from all oral, intranasal, or parenteral formulations. Patient received an IV dose of Toradol here in the emergency room. prochlorperazine maleate [Compazine] 10 mg tablet 10 mg PO Q8H PRN (Reason: nausea and vomiting) Qty: 10 0RF ibuprofen 400 mg tablet 400 mg PO Q6H PRN (Reason: pain) Qty: 20 0RF ondansetron 4 mg tablet,disintegrating 4 mg PO TID PRN (Reason: nausea and vomiting) 5 Days Qty: 10 0RF Referrals: [facility] [place] [facility] [Provider Group, Family Practice] [facility] [Provider Group] Interventions: ED Discharge Assessment Last Done: 03/16/25 01:00 Discharge Date/Time: 03/16/25 01:01 Print Language: Bulgarian
[2025-03-15 20:50] VITALS: BP 102/63; PULSE 99; RESP 16; TEMP 36.7; O2SAT 98
[2025-03-15 21:22] LABS: MANUAL DIFF FLAG NO
[2025-03-15 21:23] LABS: Hematocrit 40.3 % (37.0-47.0); Hemoglobin 13.4 g/dl (12.0-16.0); Imm Gran Abs Auto 0.02 X10*3/uL (0.00-0.03); Imm Gran Pct Auto 0.3 % (0.0-0.4); Lymphocytes Absolute Auto 2.0 X10*3/uL (1.2-4.9); Mean Corpuscular HGB Conc 33.3 g/dl (31.0-35.0); Mean Corpuscular Hemoglobin 28.8 pg (27.0-33.0); Mean Corpuscular Volume 86.7 fL (80.0-98.0); NRBC Abs Auto 0.000 X10*3/uL (0.0-0.012); NRBC Pct Auto 0.0 /100WBC (0.0-0.2); Platelet Count 344 X10*3/uL (160-400); Red Blood Count 4.65 X10*6/uL (4.20-5.50); White Blood Count 7.5 X10*3/uL (4.8-10.8)
[2025-03-15 21:37] LABS: Alanine Aminotransferase 12 U/L (0-31); Albumin Level 5.1 g/dL (3.5-5.0); Alkaline Phosphatase 67 U/L (39-117); Anion Gap 10 (12-20); Aspartate Amino Transferase 21 U/L (5-31); Blood Urea Nitrogen 12 mg/dL (9-16); Calcium 9.3 mg/dL (8.4-10.2); Carbon Dioxide 27 mmol/L (22-29); Chloride 107 mmol/L (96-108); Creatinine Clr Calc Pharmacy 85.5; Estimated Glomerular Filt Rate > 60; Potassium 3.6 mmol/L (3.3-5.1); Sodium 140 mmol/L (135-145); Total Protein 7.8 g/dL (6.5-8.0)
[2025-03-15 21:39] LABS: INTERNATIONAL NORM RATIO 0.9 (0.9-1.1); Prothrombin Time 10.8 SEC (11.2-13.5)
[2025-03-15 21:42] LABS: Partial Thromboplastin Time 30.7 SEC (26.7-34.1)
[2025-03-15 21:43] VITALS: BP 118/66; PULSE 78; RESP 12; TEMP 36.8; O2SAT 99
[2025-03-15 21:44] VITALS: BP 118/66; BP 123/83; PULSE 78; PULSE 86
[2025-03-15 21:47] VITALS: BP 130/95; PULSE 92
[2025-03-15 22:18] LABS: Appearance Urine Clear; Glucose Urine UA Negative (Negative); PH 7.5 (5.0-9.0); Specific Gravity - Urine 1.015 (1.005-1.025)
[2025-03-15 22:25] LABS: UPreg QC Valid YES
--- OUTSIDE RECORDS SUMMARY | 2025-03-15 23:27 | XMS_ITS | Encounter Summary ---
Author Organization [facility] Address [address] [place] [address] [address] [place] [address] Phone Care Team Providers Care Engagement Mgr Name Role Phone Kamini Rodriguez RN Primary Care Provider [phone] [phone] Encounter Details Date Type Department Care Team (Late st Contact Info) Description 06/24/2023 Procedure Pass [facility] [address] [place] [address] Social History Tobacco Use Types Packs/Day Years [...] Info) Description 06/13/2025 8:00 AM EDT Telemedicine [facility] [address] [place] [address] Gonzalo Bedolla MD [address] [facility] [address] [place] [address] [email or web address] 01/20/2026 1:00 PM EDT Office [place] [facility] [place] [address] [facility], [address] [place] [address] Ashlee Boucher, RETAIL OPERATIONS SPECIALIST [address] [facility] [place] [address] [email or web address] documented as of this encounter Visit Diagnoses Not on filedocumented in this encounter Care Teams Engagement Mgr Relationship Specialty Start Date End Date Kamini Rodriguez RN [email or web address] PCP - General 01/22/22 Kamini Rodriguez, ELECTRICAL TESTER [address] [place] [phone] Primary Care Physician 02/05/21 documented as of this encounter Additional Source Comments The information contained in this document represents components of the legal health record. It is not the complete legal health record.[facility]
--- OUTSIDE RECORDS SUMMARY | 2025-03-15 23:27 | XMS_ITS | Clinical Summary ---
Author Organization [facility] Address [address] [place] [phone] Phone Care Team Providers Care Manager Placement Name Role Phone Kamini Rodriguez RN Primary Care Provider [phone] [phone] Allergies No known active allergies Medications norethindrone-e thinyl estradiol-iron (ESTROSTEP FE) 1-20(5)/1-30(7) /1mg-35mcg (9) Tab Take 1 tablet by mouth daily. Active bacillus coagulans-inuli n 1 billion-250 cell-mg Cap Take 250 mg [...] tablets in 24 hours 9 tablet 5 5 Active pyRIDostigmine (MESTINON) 60 mg tablet Take 1 tablet (60 mg total) by mouth 2 (two) times a day. 180 tablet 3 5 Active midodrine (PROAMATINE) 10 MG tablet Take 1 tablet (10 mg total) by mouth every morning. As needed 30 tablet 11 5 Active sodium chloride 1,000 mg tablet Take 1 tablet (1,000 mg total) by mouth 3 (three) times a day. 270 tablet 3 5 Active amitriptyline (ELAVIL) 50 MG tablet Take 1 tablet (50 mg total) by mouth nightly at bedtime. TAKE ONE TABLET BY MOUTH AT BEDTIME 90 tablet 3 5 Active Active Problems Problem Noted Date Diagnosed [...] at the one month yin! Use a [employer] or GLG watch to count steps Message me via [place] with progress at the 4 month yin. [...] of Dysautonomia. By Magali Cochran Echo in [place] AFT tilt table in [place] Assessment & Plan (05/24/2021 1:40 PM EST): [...] and looking forward to a trip to [place] over the holidays. To adjust meds to [...] & Plan (05/24/2021 1:36 PM EST): Short [place] which could set her up for SVT, no delta wave, primary arhythmia does not appear consistent with her history, no SVT on monitoring in the past Assessment & Plan (02/09/2021 1:08 PM EDT): Short [place] which could set her up for SVT, no delta wave, primary arhythmia does not appear consistent with her history, no SVT on monitoring in the past Assessment & Plan (10/23/2020 9:16 AM EDT): Short [place] which could set her up for SVT, no delta wave, primary arhythmia does not appear consistent with her history ,no SVT on monitoring in the past Assessment & Plan (10/11/2020 11:05 AM EDT): Short [place] which could set her up for SVT, no delta wave, primary arhythmia does not appear consistent with her history ,no SVT on monitoring in the past Assessment & Plan (07/07/2020 11:01 AM EDT): Short [place] which could set her up for SVT, no delta wave, primary arhythmia does not appear consistent with her history ,no SVT on monitoring in the past Assessment & Plan (05/16/2020 11:18 PM EST): Short [place] which could set her up for SVT, no delta wave, primary arhythmia does not appear consistent with her history ,no SVT on monitoring in the past Encounters Date Type Department Care Team Description 02/01/2025 Orders Only [facility] [address] [place] [phone] Gonzalo Bedolla MD 01/28/2025 Refill [facility] [address] [place] [phone] Gonzalo Bedolla MD Med Change Request 01/27/2025 Orders Only [facility] [address] [place] [phone] Gonzalo Bedolla MD 01/21/2025 2:00 PM EDT Office [place] [facility] [facility] [address] [facility], [address] [place] [address] Kamilla Mcnally MD POTS (postural orthostatic tachycardia syndrome) (Primary Dx) 01/05/2025 Orders Only [facility] [address] [place] [phone] Gonzalo Bedolla MD 01/03/2025 Refill [facility] [address] [facility], [address] [place] [address] Leeanna Melgar, traffic survey technician Refill from Last 3 Months Social History [...] Info) Description 06/13/2025 8:00 AM EDT Telemedicine [facility] [address] [facility] [address] [place] [address] Gonzalo Bedolla MD [address] [place] [address] [place] [address] [email or web address] 01/20/2026 1:00 PM EDT Office Visit [facility] [facility] [address] [place] [address], [address] [place] [address] Ashlee Boucher, PROCESSING ANALYST [address] [place] [address] [email or web address] Health Maintenance Due Date Last Done Comments DEPRESSION SCREENING 2010 SMOKING Hx and SMOKELESS TOBACCO SCREENING 2011 HIV ONE-TIME SCREENING (18-65 YEARS) 02/11/2016 PAP [...] this topic Medical Devices Not on file Procedures Procedure Name Priority Date/Time Associated Diagnosis Comments ECG 12-LEAD Routine 01/21/2025 2:06 PM EDT POTS (postural orthostatic tachycardia syndrome) from Last 3 Months Results * ECG 12-LEAD (01/21/2025 2:06 PM EDT) Systolic Blood Pressure [facility] Diastolic Blood Pressure [facility] Ventricular Rate EKG/MIN 90 BPM [facility] Atrial Rate 90 BPM [facility] [place] Interval 114 ms [facility] QRS Duration 72 ms [facility] QT Interval 336 ms [facility] QTC Interval 411 ms [facility] P [place] 72 degrees [facility] R Wave [place] 52 degrees [facility] T Wave [place] 61 degrees [facility] 01/21/2025 2:06 PM EDT 01/28/2025 11:07 AM EDT Narrative [facility] - 01/28/2025 11:08 AM EDT LOC: [facility] DX: POSTURAL ORTHOSTATIC TACHYCARDIA SYNDROME REF: KAMILLA MCNALLY BASELINE ARTIFACT SINUS RHYTHM TRACING IS WITHIN NORMAL LIMITS WHEN COMPARED WITH ECG OF 30-Nov-2021 15:41, HEART RATE HAS INCREASED Electronically Signed in [facility] system. Confirmed by Heidi PETE, SHEKHAR Zuluaga ([id number]) on 01/28/2025 11:07:57 AM Kamilla Mcnally MD ECG ORDERABLES Final Result [facility] from Last 3 Months Insurance OUT [facility] PPO OUT [facility] PPO OUT [facility]PO OUT OF [facility] PPO OUT OF [facility] PPO SELECTIVE Care Teams Manager Placement Relationship Specialty Start Date End Date Kamini Rodriguez RN [email or web address] PCP - General 01/22/22 Kamini oRdriguez NP [address] [place] [id number] Primary Care Physician 02/05/21 Additional Source Comments The information contained in this document represents components of the legal health record. It is not the complete legal health record.[facility]
--- OUTSIDE RECORDS SUMMARY | 2025-03-15 23:27 | XMS_ITS | Encounter Summary ---
Author Organization [facility] Address [address] [place] [address] Care Team Providers Care Game Developer Name Role Phone Amanda Coleman MD Primary Care Provider [phone]- [phone] Encounter Details Date Type Department Care Team (Late st Contact Info) Description 01/29/2025 Scanned Document [address] [phone] Provider, Generic Social History Tobacco Use Types Packs/Day Years Used Date Smoking Tobacco: Never Assessed Comments Unknown Sex and Gender Information Value Date Recorded Sex Assigned at Not on file Legal Sex Female 9:45 AM EDT Gender Identity Not on file Sexual Orientation Not on file documented as of this encounter Plan of Treatment Upcoming Encounters Date Type Department Care Team (Late st Contact Info) Description 04/12/2025 1:40 PM EST Consult [facility] [address] [place] [phone] 06/07/2025 4:00 PM EST Office Visit [facility] [place] [address] [place] [phone] Cami Larson MD [address] [place] [address] documented as of this encounter Visit Diagnoses Not on filedocumented in this encounter Care Teams Game Developer Relationship Specialty Start Date End Date Amanda Coleman MD [address] [place] [phone] PCP - General Internal Medicine 01/25/25 documented as of this encounter
--- OUTSIDE RECORDS SUMMARY | 2025-03-15 23:27 | XMS_ITS | Encounter Summary ---
Author Organization [facility] Address [address] [place] [address] [address] [place] [address] Phone Care Team Providers Care Mattress Maker Name Role Phone Kamini Rodriguez RN Primary Care Provider [phone] [phone] Encounter Details Date Type Department Care Team (Late st Contact Info) Description 06/24/2023 Procedure Pass [facility] [address] [place] [address] Social History Tobacco Use Types Packs/Day Years [...] Info) Description 06/13/2025 8:00 AM EDT Telemedicine [facility] [address] [place] [address] Gonzalo Bedolla MD [address] [facility] [address] [place] [address] [email or web address] 01/20/2026 1:00 PM EDT Office Visit [facility] [address] [facility], [address] [place] [address] Ashlee Boucher, BOAT OAR MAKER [address] [place] [address] [email or web address] documented as of this encounter Visit Diagnoses Not on filedocumented in this encounter Care Teams Mattress Maker Relationship Specialty Start Date End Date Kamini Rodriguez RN [email or web address] PCP - General 01/22/22 Kamini Rodriguez, TROUBLE LOCATER [address] [place] [address] Primary Care Physician 02/05/21 documented as of this encounter Additional Source Comments The information contained in this document represents components of the legal health record. It is not the complete legal health record.[facility]
--- OUTSIDE RECORDS SUMMARY | 2025-03-15 23:27 | XMS_ITS | Clinical Summary ---
Author Organization [facility] Address [address] [place] [address] Care Team Providers Care Account Installation Specialist Name Role Phone Amanda Coleman MD Primary Care Provider [phone] Allergies No known active allergies Medications amitriptyline (ELAVIL) 50 MG tablet Take 25 mg by mouth. 01/27/2025 Active cholecalciferol (CHOLECALCIFEROL ) 10 MCG (400 UNIT) tablet Take 400 Units by mouth. Active eletriptan (RELPAX) 40 MG tablet Take 40 mg by mouth Once before discharge. 01/05/2025 Active Active Problems No known active problems Encounters Date Type Department Care Team Description 01/29/2025 8:00 AM EDT Office Visit [facility] [address] [phone] Augusto Trujillo MD [place], Allison, PAAdiC Other migraine without status migrainosus, not intractable (Primary Dx) 01/29/2025 Scanned Document [address] [place] [address] [phone] Provider, Generic from Last 3 Months Social History Tobacco Use Types Packs/Day Years Used Date Smoking Tobacco: Never Assessed Comments Unknown Sex and Gender Information Value Date Recorded Sex Assigned at Not on file Legal Sex Female 9:45 AM EDT Gender Identity Not on file Sexual Orientation Not on file Last Filed Vital Signs Vital Sign Reading Time Taken Comments Blood Pressure 100/66 01/29/2025 8:16 AM EDT Pulse 96 01/29/2025 8:28 AM EDT Temperature 36.4 C (97.5 F) 01/29/2025 8:16 AM EDT Respiratory Rate 15 01/29/2025 8:16 AM EDT Oxygen Saturation 100% 01/29/2025 8:16 AM EDT Inhaled Oxygen Concentration - - Weight - - Height - - Body Mass Index - - Plan of Treatment Upcoming Encounters Date Type Department Care Team (Late st Contact Info) Description 04/12/2025 1:40 PM EST Consult [facility] [address] [place] [phone] 06/07/2025 4:00 PM EST [facility] Visit [facility] [address] [place] [address] [phone] Cami Larson MD [address] [place] [phone] Health Maintenance Due Date Last Done Comments Hepatitis C Virus Screening 1998 HIV Screening 2011 Physical 02/11/2016 DTaP/Tdap/Td Vaccines (1 - Tdap) 2017 Hepatitis B Vaccines (1 of 3 - 19+ 3-dose series) 2017 Pap Smear (Ages 21-65) 2019 Influenza Vaccine 11/05/2024 01/12/2024, , 01/18/2019, Additional history exists COVID-19 Vaccine ( season) 2024 02/02/2021, 07/29/2020, 07/08/2020 HPV Vaccines (No Doses Required) Completed Pneumococcal Vaccine: Pediatric (0-5 Years) and At-Risk Patients (6 to 49 Years) Aged Out No longer eligible based on patient's age to complete this topic Insurance [facility] PPO [facility] PPO Care Teams Account Installation Specialist Relationship Specialty Start Date End Date Amanda Coleman MD [address] [place] [address] PCP - General Internal Medicine 01/25/25
--- OUTSIDE RECORDS SUMMARY | 2025-03-15 23:27 | XMS_ITS | Encounter Summary ---
Author Organization [facility] Address [address] [place] [address] [address] [place] [address] Phone Care Team Providers Care Hand Tacker Name Role Phone Unknown, Unknown Primary Care Provider Kamini Jones RN Primary Care Provider [phone] Encounter Details Date Type Department Care Team (Late st Contact Info) Description 07/19/2021 Procedure Pass [facility]iology [address] [facility], [address] [place] [phone] Social History Tobacco Use Types Packs/Day Years [...] Info) Description 06/13/2025 8:00 AM EDT Telemedicine [facility] [address] [place] [address] [place] [phone] Gonzalo Bedolla MD [address] [place] [phone] [email or web address] 01/20/2026 1:00 PM EDT Office Visit [facility] [address] [facility] [facility], [address] [place] [address] Ashlee Boucher, [employer] [address] [place] [address] [email or web address] documented as of this encounter Visit Diagnoses Not on filedocumented in this encounter Care Teams Hand Tacker Relationship Specialty Start Date End Date Unknown, Unknown, PCP - General 02/20/21 01/21/22 Kamini Rodriguez RN [email or web address] PCP - General 01/22/22 Kamini Rodriguez NP [address] [place] [phone] Primary Care Physician 02/05/21 documented as of this encounter Additional Source Comments The information contained in this document represents components of the legal health record. It is not the complete legal health record.[facility]
[2025-03-15 23:32] LABS: Troponin-I High Sensitivity < 2.7 ng/L (<3.5-17.0)
[2025-03-16 00:44] VITALS: BP 118/76; PULSE 86; RESP 16; TEMP 36.8; O2SAT 98
[2025-03-16 01:00] VITALS: BP 118/76; PULSE 86; RESP 16; TEMP 36.8; O2SAT 98
== END 2025-03-16 01:01 | disposition home or self-care (01) ==
PROVIDERS: Nurse Practitioner; Physician Assistant; Emergency Provider Emergency Medicine
DX: G43.909 Migraine, unspecified, not intractable, without status migrainosus (principal); R55 Syncope and collapse; S09.90XA Unspecified injury of head, initial encounter; W18.30XA Fall on same level, unspecified, initial encounter; Y93.9 Activity, unspecified; Y92.9 Unspecified place or not applicable; Y99.9 Unspecified external cause status; R11.0 Nausea; Z79.899 Other long term (current) drug therapy
CPT/HCPCS: 36415; 70450; 72125; 80053; 81003; 81025; 84484; 84702; 85025; 85610; 85730; 93005; 96361; 96372; 96374; 96375; 99284; 99285; J0737; J1200; J1885

== ENCOUNTER → 2025-03-15 19:38 | Outpatient (BNV) | payer BC, SELFPAY | PROVIDERS: Emergency Provider Emergency Medicine; Visit Provider Internal Medicine Cardiovascular Disease | DX: R42 Dizziness and giddiness (principal); R55 Syncope and collapse | CPT/HCPCS: 93010 ==